=== PATIENT | male | born 1970 | race Caucasian/White ===

== ENCOUNTER 2019-09-13 19:11 | Emergency (ER) | payer BC, OTHER ==
[2019-09-13 19:28] VITALS: RESP 18
[2019-09-13] MEDS ORDERED: SODIUM CHLORIDE 0.9% 1,000 ML IV STA (20:00)
[2019-09-13] MEDS ORDERED: KETOROLAC 30 MG/ML 1 ML VIAL IVP STA (20:00)
[2019-09-13] MEDS ORDERED: ACETAMINOPHEN TAB 500 MG TAB PO STA (20:06)
--- NOTE | 2019-09-13 20:08 | ED ---
General Adult HPI - General Chief complaint: Abdominal Pain Stated complaint: Abdominal Pain Time Seen by Provider: 09/13/19 19:33 Source: patient, RN notes reviewed Mode of arrival: ambulatory Limitations: no limitations - History of Present Illness Initial comments: 49-year-old male with a past medical history of diverticulitis, inguinal hernia, cholecystectomy presents to the emergency department for a chief complaint of abdominal pain. Patient states he has had mild lower abdominal pain for the past 4 days. He states his bowel movements have been more loose as well. Patient has history of diverticulitis and feels this may be causing the sym ptoms. He did have some chest tightness earlier today that was concerning to him. This did not worsen with exertion and seem to worsen with the abdominal pain. He didn't have any other associated symptoms. He does not have a history of hyperlipidemia or hypertension.. Patient has felt febrile but has not had a thermometer at home to check his temperature. He has not had much of an appetite either. He denies cough congestion sore throat shortness of breath.Patient has no other complaints at this time including shortness of breath, chest pain, abdominal pain, nausea or vomiting, headache, or visual changes. - Related Data Home Medications Medication Instructions Recorded Confirmed DULoxetine HCL [Cymbalta] 60 mg PO HS 09/13/19 09/13/19 Divalproex ER [Depakote ER] 500 mg PO HS 09/13/19 09/13/19 Previous Rx's Medication Instructions Recorded Levofloxacin [Levaquin] 750 mg PO DAILY 9 Days #9 tab 09/13/19 metroNIDAZOLE [Flagyl] 500 mg PO TID 29 Days #9 tab 09/13/19 Allergies Allergy/AdvReac Type Severity Reaction Status Date / Time Penicillins Allergy Rash/Hives Verified 09/13/19 19:28 Sulfa (Sulfonamide AdvReac Nausea & Verified 09/13/19 19:28 Antibiotics) Vomiting & Diarrhea Review of Systems ROS Statement: Those systems with pertinent positive or pertinent negative responses have been documented in the HPI. ROS Other: All systems not noted in ROS Statement are negative. Past Medical History Additional Past Medical History / Comment(s): diverticulitis History of Any Multi-Drug Resistant Organisms: None Reported Past Surgical History: Cholecystectomy Additional Past Surgical History / Comment(s): double hernia repair, bilat hands carpool tunnel repair Past Psychological History: PTSD Smoking Status: Vaper Past Alcohol Use History: Rare Past Drug Use History: None Reported General Exam Limitations: no limitations General appearance: alert, in no apparent distress Head exam: Present: atraumatic, normocephalic, normal inspection Eye exam: Present: normal appearance, PERRL, EOMI. Absent: scleral icterus, conjunctival injection, periorbital swelling ENT exam: Present: normal exam, mucous membranes moist Neck exam: Present: normal inspection, full ROM. Absent: tenderness, meningismus, lymphadenopathy Respiratory exam: Present: normal lung sounds bilaterally. Absent: respiratory distress, wheezes, rales, rhonchi, stridor Cardiovascular Exam: Present: regular rate, normal rhythm, normal heart sounds. Absent: systolic murmur, diastolic murmur, rubs, gallop, clicks GI/Abdominal exam: Present: soft, tenderness (Tenderness noted to the left lower quadrant without rebound), normal bowel sounds. Absent: distended, guarding, rebound, rigid Back exam: Absent: CVA tenderness (R), CVA tenderness (L) Neurological exam: Present: alert Course Vital Signs 09/13/19 09/13/19 19:24 21:10 Temperature 100.2 F H 98.8 F Pulse Rate 95 82 Respiratory 18 18 Rate Blood Pressure 156/94 127/70 O2 Sat by Pulse 98 95 Oximetry EKG Findings - EKG Comments: EKG Findings:: Normal sinus rhythm, ventricular rate 80, DE interval 146, QTC 408 Medical Decision Making - Medical Decision Making Vitals are stable. Patient had low-grade fever on presentation to emergency room however is very well appearing. Does not appear toxic. CBC CMP is unremarkable. Urinalysis is negative. Troponin is negative. Lactic acid minimally elevated at 2.5 which is likely secondary to dehydration. Patient given fluids. CT abdomen and pelvis does show a focal diverticulitis in the mid sigmoid colon Without drainable fluid collection. Patient was started on antibiotics. I did discuss the risk of fluoroquinolone including tendon rupture. 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 He will follow up with primary care. He will return here for any worsening symptoms. - Lab Data Result diagrams: 09/13/19 20:18 09/13/19 20:18 Lab Results 09/13/19 09/13/19 09/13/19 Range/Units 20:18 20:18 20:18 WBC 10.1 (3.8-10.6) k/uL RBC 4.55 (4.30-5.90) m/uL Hgb 14.2 (13.0-17.5) gm/dL Hct 41.0 (39.0-53.0) % MCV 90.0 (80.0-100.0) fL MCH 31.2 (25.0-35.0) pg MCHC 34.7 (31.0-37.0) g/dL RDW 12.8 (11.5-15.5) % Plt Count 214 (150-450) k/uL Neutrophils % 72 % Lymphocytes % 20 % Monocytes % 5 % Eosinophils % 1 % Basophils % 0 % Neutrophils # 7.3 (1.3-7.7) k/uL Lymphocytes # 2.0 (1.0-4.8) k/uL Monocytes # 0.5 (0-1.0) k/uL Eosinophils # 0.1 (0-0.7) k/uL Basophils # 0.0 (0-0.2) k/uL Sodium 136 L (137-145) mmol/L Potassium 4.2 (3.5-5.1) mmol/L Chloride 100 (98-107) mmol/L Carbon Dioxide 26 (22-30) mmol/L Anion Gap 10 mmol/L BUN 15 (9-20) mg/dL Creatinine 0.99 (0.66-1.25) mg/dL Est GFR (CKD-EPI)AfAm >90 (>60 ml/min/1.73 sqM) Est GFR (CKD-EPI)NonAf 90 (>60 ml/min/1.73 sqM) Glucose 168 H (74-99) mg/dL Plasma Lactic Acid Wayne (0.7-2.0) mmol/L Calcium 9.4 (8.4-10.2) mg/dL Total Bilirubin 0.5 (0.2-1.3) mg/dL AST 28 (17-59) U/L ALT 39 (4-49) U/L Alkaline Phosphatase 42 (38-126) U/L Troponin I (0.000-0.034) ng/mL Total Protein 7.3 (6.3-8.2) g/dL Albumin 4.5 (3.5-5.0) g/dL Amylase 44 (30-110) U/L Lipase 112 (23-300) U/L Urine Color Yellow Urine Appearance Clear (Clear) Urine pH 6.0 (5.0-8.0) Ur Specific [place] 1.016 (1.001-1.035) Urine Protein Negative (Negative) Urine Glucose (UA) Negative (Negative) Urine Ketones Negative (Negative) Urine Blood Negative (Negative) Urine Nitrite Negative (Negative) Urine Bilirubin Negative (Negative) Urine Urobilinogen <2.0 (<2.0) mg/dL Ur Leukocyte Esterase Negative (Negative) 09/13/19 09/13/19 Range/Units 20:18 20:18 WBC (3.8-10.6) k/uL RBC (4.30-5.90) m/uL Hgb (13.0-17.5) gm/dL Hct (39.0-53.0) % MCV (80.0-100.0) fL MCH (25.0-35.0) pg MCHC (31.0-37.0) g/dL RDW (11.5-15.5) % Plt Count (150-450) k/uL Neutrophils % % Lymphocytes % % Monocytes % % Eosinophils % % Basophils % % Neutrophils # (1.3-7.7) k/uL Lymphocytes # (1.0-4.8) k/uL Monocytes # (0-1.0) k/uL Eosinophils # (0-0.7) k/uL Basophils # (0-0.2) k/uL Sodium (137-145) mmol/L Potassium (3.5-5.1) mmol/L Chloride (98-107) mmol/L Carbon Dioxide (22-30) mmol/L Anion Gap mmol/L BUN (9-20) mg/dL Creatinine (0.66-1.25) mg/dL Est GFR (CKD-EPI)AfAm (>60 ml/min/1.73 sqM) Est GFR (CKD-EPI)NonAf (>60 ml/min/1.73 sqM) Glucose (74-99) mg/dL Plasma Lactic Acid Wayne 2.5 H* (0.7-2.0) mmol/L Calcium (8.4-10.2) mg/dL Total Bilirubin (0.2-1.3) mg/dL AST (17-59) U/L ALT (4-49) U/L Alkaline Phosphatase (38-126) U/L Troponin I <0.012 (0.000-0.034) ng/mL Total Protein (6.3-8.2) g/dL Albumin (3.5-5.0) g/dL Amylase (30-110) U/L Lipase (23-300) U/L Urine Color Urine Appearance (Clear) Urine pH (5.0-8.0) Ur Specific [place] (1.001-1.035) Urine Protein (Negative) Urine Glucose (UA) (Negative) Urine Ketones (Negative) Urine Blood (Negative) Urine Nitrite (Negative) Urine Bilirubin (Negative) Urine Urobilinogen (<2.0) mg/dL Ur Leukocyte Esterase (Negative) Disposition Clinical Impression: Diverticulitis Disposition: HOME SELF-CARE Condition: Good Instructions (If sedation given, give patient instructions): Diverticulitis (ED), Diverticulitis Diet (ED) Additional Instructions: Please take antibiotic as directed. Monitor for worsening symptoms such as worsening pain or high fevers. If these occur return to the emergency room. Follow-up with primary care and GI in 1-2 days. Prescriptions: metroNIDAZOLE [Flagyl] 500 mg PO TID 29 Days #9 tab Levofloxacin [Levaquin] 750 mg PO DAILY 9 Days #9 tab Is patient prescribed a controlled substance at d/c from ED?: No Referrals: Zi King MD [Primary Care Provider] - 1-2 days Anna Drew MD [STAFF PHYSICIAN] - 1-2 days Time of Disposition: 21:39
[2019-09-13 20:28] LABS: Appearance,Urine Clear (Clear); Bilirubin,Urine Negative (Negative); Blood,Urine Negative (Negative); Color,Urine Yellow; Glucose,Urine (UA) Negative (Negative); Ketones,Urine Negative (Negative); Leukocyte Esterase,Urine Negative (Negative); Nitrite,Urine Negative (Negative); Protein,Urine Negative (Negative); Specific Gravity,Urine 1.016 (1.001-1.035); Urobilinogen,Urine <2.0 mg/dL (<2.0)
[2019-09-13 20:29] LABS: Basophils % (A) 0 %; Eosinophils # (A) 0.1 k/uL (0-0.7); Eosinophils % (A) 1 %; HGB 14.2 gm/dL (13.0-17.5); Lymphocytes % (A) 20 %; MCH 31.2 pg (25.0-35.0); MCHC 34.7 g/dL (31.0-37.0); Mean Platelet Volume 7.7; Monocytes # (A) 0.5 k/uL (0-1.0); Monocytes % (A) 5 %; Neutrophils # (A) 7.3 k/uL (1.3-7.7); Neutrophils % (A) 72 %; Platelet Count 214 k/uL (150-450); RBC 4.55 m/uL (4.30-5.90); RDW 12.8 % (11.5-15.5); WBC 10.1 k/uL (3.8-10.6)
[2019-09-13 20:49] LABS: ALT 39 U/L (4-49); AST 28 U/L (17-59); African American GFR (CKD) >90 (>60 ml/min/1.73 sqM); Albumin 4.5 g/dL (3.5-5.0); Alkaline Phosphatase 42 U/L (38-126); Amylase 44 U/L (30-110); Anion Gap 10 mmol/L; Blood Urea Nitrogen 15 mg/dL (9-20); Calcium 9.4 mg/dL (8.4-10.2); Carbon Dioxide 26 mmol/L (22-30); Chloride 100 mmol/L (98-107); Glucose 168 mg/dL (74-99); Non-African American GFR(CKD) 90 (>60 ml/min/1.73 sqM); Potassium 4.2 mmol/L (3.5-5.1); Sodium 136 mmol/L (137-145); Total Bilirubin 0.5 mg/dL (0.2-1.3); Total Protein 7.3 g/dL (6.3-8.2)
[2019-09-13 21:10] VITALS: BP 127/70; PULSE 82; TEMP 98.8
--- NOTE | 2019-09-13 21:11 | CT ---
EXAMINATION TYPE: CT abdomen pelvis w con DATE OF EXAM: 09/13/2019 COMPARISON: None HISTORY: LLQ pain CT DLP: 2223.1 mGycm Automated exposure control for dose reduction was used. CONTRAST: Performed with IV Contrast, patient injected with 100 mL of Isovue 300. Images obtained from the diaphragm to the floor the pelvis with IV contrast. Lung bases are clear. There is no pleural effusion. Heart appears normal. There is diffuse fatty infiltration of the liver. Spleen is intact. Stomach appears intact. There is no pancreatic mass. The bile ducts are not dilated. Gallbladder appears absent. There is no adrenal mass. Kidneys show satisfactory contrast opacification. There is no hydronephrosi s. There is 2 cm cortical cyst lateral right kidney. The ureters are not dilated. Delayed images show normal renal calyceal opacification. There is no retroperitoneal adenopathy. Ureters are not dilated . Bladder distends smoothly. There is no inguinal hernia. There is no free fluid in the pelvis. The a ppendix appears normal. There is fat stranding and wall thickening involving the MID sigmoid colon. There are multiple sigmoi d diverticula. Lumbar vertebra have normal alignment. Disc spaces are fairly normal. Posterior elements are intact. Sacroiliac joints appear intact. There are clips in the lower anterior abdomen apparently from hernia surgery. There is no evidence of a bowel obstruction. There is no ascites or free air. IMPRESSION: There is focal diverticulitis in the mid proximal sigmoid colon. No drainable fluid collection. Normal appendix. Fatty infiltration of the liver.
[2019-09-13] MEDS ORDERED: LEVOFLOXACIN 750 MG TAB PO STA (21:41)
[2019-09-13] MEDS ORDERED: metroNIDAZOLE 500 MG TAB PO STA (21:41)
== END 2019-09-13 21:56 | disposition home or self-care (01) ==
LOC: EC 19:11
DX: K57.32 Diverticulitis of large intestine without perforation or abscess without bleeding (principal); F17.290 Nicotine dependence, other tobacco product, uncomplicated; Z79.899 Other long term (current) drug therapy; Z88.0 Allergy status to penicillin; Z88.2 Allergy status to sulfonamides; Z90.49 Acquired absence of other specified parts of digestive tract
CPT/HCPCS: 36415; 93005; 80053; 82150; 83605; 83690; 84484; 85025; 81003; 74177; 99284; 96374; 96361 ×2; J1885; Q9967

== ENCOUNTER 2019-11-22 14:42 | Emergency (ER) | payer BC, OTHER ==
[2019-11-22 14:51] VITALS: BP 164/96; PULSE 89; RESP 18; TEMP 99
--- NOTE | 2019-11-22 14:54 | ED ---
Wound/Laceration HPI - General Source: patient Mode of arrival: ambulatory Limitations: no limitations - History of Present Illness -: hour(s) (1) <Puneet Bellamy - Last Filed: 11/22/19 15:00> <Maggy Figueroa - Last Filed: 11/22/19 16:04> - General Chief Complaint: Wound/Laceration Stated Complaint: L Hand Lac Time Seen by Provider: 11/22/19 14:54 - History of Present Illness Initial Comments: Patient is a 49-year-old male presenting to emergency Department with a chief complaint of a laceration. Patient states he was using a sharp knife when it slipped and lacerated the dorsal aspect of his left thumb. Patient states he has full range of motion. Is not aware of his tetanus status. Denies taking medication to alleviate the pain. States the pain is about a 3 and a sharp in nature. Reports some initial bleeding which has since resolved. (Puneet Bellamy) - Related Data Home Medications Medication Instructions Recorded Confirmed DULoxetine HCL [Cymbalta] 60 mg PO HS 09/13/19 09/13/19 Divalproex ER [Depakote ER] 500 mg PO HS 09/13/19 09/13/19 Previous Rx's Medication Instructions Recorded Levofloxacin [Levaquin] 750 mg PO DAILY 9 Days #9 tab 09/13/19 metroNIDAZOLE [Flagyl] 500 mg PO TID 29 Days #9 tab 09/13/19 Allergies Allergy/AdvReac Type Severity Reaction Status Date / Time Penicillins Allergy Rash/Hives Verified 11/22/19 14:51 Sulfa (Sulfonamide AdvReac Nausea & Verified 11/22/19 14:51 Antibiotics) Vomiting & Diarrhea Review of Systems ROS Other: All systems not noted in ROS Statement are negative. <Puneet Bellamy - Last Filed: 11/22/19 15:00> ROS Other: All systems not noted in ROS Statement are negative. <Maggy Figueroa - Last Filed: 11/22/19 16:04> ROS Statement: Those systems with pertinent positive or pertinent negative responses have been documented in the HPI. Past Medical History Additional Past Medical History / Comment(s): diverticulitis History of Any Multi-Drug Resistant Organisms: None Reported Past Surgical History: Cholecystectomy Additional Past Surgical History / Comment(s): double hernia repair, bilat hands carpool tunnel repair Past Psychological History: PTSD Smoking Status: Vaper Past Alcohol Use History: Rare Past Drug Use History: None Reported <Puneet Bellamy Last Filed: 11/22/19 15:00> General Exam Limitations: no limitations General appearance: alert, in no apparent distress, obese Head exam: Present: atraumatic, normocephalic, normal inspection Eye exam: Present: normal appearance, PERRL, EOMI Pupils: Present: normal accommodation ENT exam: Present: normal exam, normal oropharynx, mucous membranes moist, TM's normal bilaterally, normal external ear exam Neck exam: Present: normal inspection, full ROM. Absent: tenderness Respiratory exam: Present: normal lung sounds bilaterally. Absent: respiratory distress, wheezes, rales Cardiovascular Exam: Present: regular rate, normal rhythm, normal heart sounds Extremities exam: Present: normal inspection, full ROM, normal capillary refill. Absent: tenderness Back exam: Present: normal inspection, full ROM. Absent: tenderness, CVA ten derness (R), CVA tenderness (L) Neurological exam: Present: alert, oriented X3, normal gait Psychiatric exam: Present: normal affect, normal mood Skin exam: Present: warm, dry, intact, normal color <Puneet Bellamy Last Filed: 11/22/19 15:00> Course Vital Signs 11/22/19 14:48 Temperature 99.0 F Pulse Rate 89 Respiratory 18 Rate Blood Pressure 164/96 O2 Sat by Pulse 99 Oximetry Procedures - Laceration Laceration #1 Consent Obtained: verbal consent Indication: laceration Site: hand Size (cm): 5 Description: linear, clean Depth: simple, single layer Sedation/Analgesia: none Anesthetic Used: lidocaine 1% Anesthesia Technique: local infiltration Amount (mls): 5 Pre-repair: irrigated extensively, deep structures intact Type of Sutures: nylon Size of Sutures: 4-0 Number of Sutures: 5 Technique: simple, interrupted Complications: pain Patient Tolerated Procedure: well, no complications <Puneet Bellamy - Last Filed: 11/22/19 15:00> Medical Decision Making <Puneet Bellamy Last Filed: 11/22/19 15:00> <Maggy Figueroa - Last Filed: 11/22/19 16:04> - Medical Decision Making Patient is a 49-year-old male presenting to emergency Department with a chief complaint of a laceration. Laceration is approximate 5 cm in length. He has f ull range of motion. No injury to the tendons. Laceration was repaired with 5 suture. Patient is neurovascularly intact in his thumb. Return parameters were thoroughly discussed patient is an attending agreeable. Advised to return in 10 days. Case discussed with physician (Puneet Bellamy) I was available for consultation in the emergency department. The history and physical exam were done by the midlevel provider. I was consulted for this patients care. I reviewed the case with the midlevel provider and based on their presentation of the patient, I agree with the assessment, medical decision making and plan of care as documented. Chart was dictated using [employer] dictation software. Attempts were made to correct any dictation errors however some typographical errors may persist. (Maggy Figueroa) Disposition Is patient prescribed a controlled substance at d/c from ED?: No Time of Disposition: 15:06 <Puneet Bellamy - Last Filed: 11/22/19 15:00> <Maggy Figueroa - Last Filed: 11/22/19 16:04> Clinical Impression: Laceration Disposition: HOME SELF-CARE Condition: Stable Instructions (If sedation given, give patient instructions): Care For Your St itches (DC), Laceration (DC) Additional Instructions: Please return to the emergency room in 8-10 days to have sutures removed. Please watch for any signs of infection which may include increased pain, swelling, redness, fever or chills. Please return to emergency room for any signs of infection do occur. Please use clean soap and water over the area to prevent scabbing over your stitches. Please leave wound covered for the first 24-48 hours and then leave wound open to air. Please return to the emergency room for any other concerns. Referrals: Zi King MD [Primary Care Provider] - 1-2 days
[2019-11-22] MEDS ORDERED: LIDOCAINE 1% INJ 10MG/ML (20 ML MDV) SQ ONE (15:00)
[2019-11-22] MEDS ORDERED: DIPH,PERTUS(ACELL)TETVAC-LF 0.5 ML VIAL IM ONE (15:00)
== END 2019-11-22 15:53 | disposition home or self-care (01) ==
LOC: EC 14:42
DX: S61.012A Laceration without foreign body of left thumb without damage to nail, initial encounter (principal); F17.290 Nicotine dependence, other tobacco product, uncomplicated; Z79.899 Other long term (current) drug therapy; Z88.0 Allergy status to penicillin; Z88.2 Allergy status to sulfonamides; Z23 Encounter for immunization; W26.0XXA Contact with knife, initial encounter
CPT/HCPCS: 90715; 99282; 12002; 90471; J2001

== ENCOUNTER 2019-12-05 06:36 | Emergency (ER) | payer BC, OTHER ==
[2019-12-05 06:43] VITALS: BP 161/99; PULSE 82; RESP 20; TEMP 98.2
--- NOTE | 2019-12-05 06:58 | ED ---
General Adult HPI - General Chief complaint: Wound/Laceration Stated complaint: Left hand lac Time Seen by Provider: 12/05/19 06:46 Source: patient, RN notes reviewed Mode of arrival: ambulatory Limitations: no limitations - History of Present Illness Initial comments: 49-year-old male presents to the emergency room for a chief complaint of wound opening. Patient reports that he had a laceration repaired on the dorsum of his left thumb about 2 weeks ago. Sutures were removed a few days ago. 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 Patient reports he tried to suture it himself but was unable to do so with one hand. Patient has some minimal decreased sensation over laceration site. Otherwise sensation intact in the left hand. Full range of motion. Patient has no other complaints at this time including shortness of breath, chest pain, abdominal pain, nausea or vomiting, headache, or visual changes. - Related Data Home Medications Medication Instructions Recorded Confirmed DULoxetine HCL [Cymbalta] 60 mg PO HS 09/13/19 09/13/19 Divalproex ER [Depakote ER] 500 mg PO HS 09/13/19 09/13/19 Previous Rx's Medication Instructions Recorded Levofloxacin [Levaquin] 750 mg PO DAILY 9 Days #9 tab 09/13/19 metroNIDAZOLE [Flagyl] 500 mg PO TID 29 Days #9 tab 09/13/19 Cephalexin [Keflex] 500 mg PO Q6HR 5 Days #20 cap 12/05/19 Allergies Allergy/AdvReac Type Severity Reaction Status Date / Time Penicillins Allergy Rash/Hives Verified 12/05/19 06:43 Sulfa (Sulfonamide AdvReac Nausea & Verified 12/05/19 06:43 Antibiotics) Vomiting & Diarrhea Review of Systems ROS Statement: Those systems with pertinent positive or pertinent negative responses have been documented in the HPI. ROS Other: All systems not noted in ROS Statement are negative. Past Medical History Additional Past Medical History / Comment(s): diverticulitis History of Any Multi-Drug Resistant Organisms: None Reported Past Surgical History: Cholecystectomy Additional Past Surgical History / Comment(s): double hernia repair, bilat hands carpool tunnel repair Past Psychological History: PTSD Smoking Status: Vaper Past Alcohol Use History: Rare Past Drug Use History: None Reported General Exam Limitations: no limitations General appearance: alert, in no apparent distress Head exam: Present: atraumatic, normocephalic, normal inspection Eye exam: Present: normal appearance, PERRL, EOMI. Absent: scleral icterus, conjunctival injection, periorbital swelling ENT exam: Present: normal exam, mucous membranes moist Neck exam: Present: normal inspection. Absent: tenderness, meningismus, lymphadenopathy Respiratory exam: Present: normal lung sounds bilaterally. Absent: respiratory distress, wheezes, rales, rhonchi, stridor Cardiovascular Exam: Present: regular rate, normal rhythm, normal heart sounds. Absent: systolic murmur, diastolic murmur, rubs, gallop, clicks Extremities exam: Present: other (Patient has a 2.5 cm area of shallow dehiscence noted to the left dorsal thumb. He has full range of motion in the thumb. Sensation intact aside from some mild decreased sensation around laceration site. Capillary refill less than 2 seconds in the left thumb. No evidence of infection ) Course Vital Signs 12/05/19 06:38 Temperature 98.2 F Pulse Rate 82 Respiratory 20 Rate Blood Pressure 161/99 O2 Sat by Pulse 98 Oximetry Medical Decision Making - Medical Decision Making Wound has evidence of granulation tissue surrounding it however no significant erythema, increased warmth, or purulent drainage. No streaking redness. No evidence of infection. Neurovascular status intact aside from slight decreased sensation around laceration site. As wound was closed about 2 weeks ago sutures were not reapplied given high risk of infection at this point. Steri-Strips were applied to the wound. Patient was given extra to take home. Patient reported he did not really receive a tetanus immunization however upon further investigation patient did in fact receive a tetanus immunization on his last visit. At this time patient will be discharged home with Keflex to prevent infection as wound is open. He will return here for any worsening symptoms. Disposition Clinical Impression: Laceration, Wound dehiscence Disposition: HOME SELF-CARE Condition: Good Instructions (If sedation given, give patient instructions): Wound Dehiscence (ED) Additional Instructions: Please take antibiotic as directed. Your wound is expected to heal from the inside out through a process called secondary intention healing. Monitor for signs of infection such as spreading or streaking redness, drainage, or fever and return if these occur. Follow-up with primary care in 1-2 days for a recheck. Prescriptions: Cephalexin [Keflex] 500 mg PO Q6HR 5 Days #20 cap Is patient prescribed a controlled substance at d/c from ED?: No Referrals: Zi King MD [Primary Care Provider] - 1-2 days Time of Disposition: 06:56
[2019-12-05] MEDS ORDERED: DIPH,PERTUS(ACELL)TETVAC-LF 0.5 ML VIAL IM ONE (07:02)
== END 2019-12-05 07:10 | disposition home or self-care (01) ==
LOC: EC 06:36
DX: T81.30XA Disruption of wound, unspecified, initial encounter (principal); F43.10 Post-traumatic stress disorder, unspecified; F17.290 Nicotine dependence, other tobacco product, uncomplicated; Z79.899 Other long term (current) drug therapy; Z88.0 Allergy status to penicillin; Z88.2 Allergy status to sulfonamides
CPT/HCPCS: 99282

== ENCOUNTER → 2021-04-05 | Outpatient (CLI) | payer OTHER ==
--- NOTE | 2021-04-05 17:36 | MR ---
EXAMINATION TYPE: MR knee RT wo con DATE OF EXAM: 04/05/2021 COMPARISON: None. HISTORY: Pain in right knee, inner ear pain for years per patient. TECHNIQUE: Multiplanar, multisequence imaging of the right knee is performed without IV contrast. FINDINGS: LATERAL MENISCUS: Anterior and posterior horns are intact without tear. MEDIAL MENISCUS: Medial extrusion medial meniscus on coronal images. Horizontal increased signal ante rior horn extends to central body and posterior horn, there is irregularity in the central body . CRUCIATE LIGAMENTS: The anterior and posterior cruciate ligaments are intact and unremarkable. COLLATERAL LIGAMENTS: The medial collateral ligament and lateral collateral ligament complex are inta ct and unremarkable. EXTENSOR MECHANISM: Visualized quadriceps and patellar tendons are intact. EFFUSION: Small suprapatellar joint effusion. POPLITEAL CYST: No popliteal/hadley cyst. TRICOMPARTMENT SPACES: Mild tricompartment degenerative joint space loss. Mild tricompartment spurrin g. CARTILAGE: Tricompartmental articular cartilage preserved. BONE MARROW SIGNAL: No focal abnormal marrow signal is appreciated. OTHER: No additional significant abnormality is appreciated. IMPRESSION: 1. Tearing through the medial meniscus involving anterior and posterior horns and the central body. 2. Mild tricompartment degenerative changes. 3. Small suprapatellar joint effusion.
== END | disposition home or self-care (01) ==
LOC: RADMRIMAIN 11:05
PROVIDERS: ATTEND Orthopaedic Surgery
DX: M17.11 Unilateral primary osteoarthritis, right knee (principal); M23.311 Other meniscus derangements, anterior horn of medial meniscus, right knee; M25.461 Effusion, right knee; M23.321 Other meniscus derangements, posterior horn of medial meniscus, right knee

== ENCOUNTER → 2021-04-17 | Outpatient (CLI) | payer OTHER ==
[2021-04-17 14:09] LABS: Basophils # (A) 0.03 X 10*3/uL (0.00-0.10); Basophils % (A) 0.6 %; Eosinophils # (A) 0.07 X 10*3/uL (0.04-0.35); Eosinophils % (A) 1.3 %; HCT 40.9 % (39.6-50.0); HGB 14.2 g/dL (13.0-17.0); Immature Grans, Automated 0.2 %; Lymphocytes # (A) 1.86 X 10*3/uL (0.90-5.00); Lymphocytes % (A) 35.2 %; MCH 30.8 pg (27.0-32.0); MCHC 34.7 g/dL (32.0-37.0); MCV 88.7 fL (80.0-97.0); Mean Platelet Volume 10.7 fL (9.5-12.2); Monocytes # (A) 0.55 X 10*3/uL (0.20-1.00); Monocytes % (A) 10.4 %; NRBC Per 100 WBC 0 /100 WBCS (0.0-0.0); Neutrophils # (A) 2.77 X 10*3/uL (1.80-7.70); Neutrophils % (A) 52.3 %; Platelet Count 202 X 10*3/uL (140-440); RBC 4.61 X 10*6/uL (4.40-5.60); RDW 12.7 % (11.5-14.5); WBC 5.29 X 10*3/uL (4.50-10.00)
[2021-04-17 14:33] LABS: Anion Gap 13.5 mmol/L (10.00-18.00); Carbon Dioxide 21.5 mmol/L (20.0-27.5); Potassium 4.3 mmol/L (3.5-5.5)
== END | disposition home or self-care (01) ==
LOC: LABPAT 08:39
PROVIDERS: ATTEND Orthopaedic Surgery
DX: Z01.812 Encounter for preprocedural laboratory examination (principal); M23.91 Unspecified internal derangement of right knee
CPT/HCPCS: 36415; 80051; 85025; 93005

== ENCOUNTER 2021-07-27 13:15 | Emergency (ER) | payer OTHER, BC ==
[2021-07-27 13:30] VITALS: BP 172/77; PULSE 70; RESP 16; TEMP 97.8
[2021-07-27 14:39] LABS: Basophils # (A) 0.1 k/uL (0-0.2); Basophils % (A) 1 %; Eosinophils # (A) 0.1 k/uL (0-0.7); Eosinophils % (A) 1 %; HCT 43.2 % (39.0-53.0); HGB 14.3 gm/dL (13.0-17.5); Lymphocytes # (A) 1.8 k/uL (1.0-4.8); Lymphocytes % (A) 25 %; MCH 29.8 pg (25.0-35.0); MCHC 33.1 g/dL (31.0-37.0); Mean Platelet Volume 7.8; Monocytes # (A) 0.5 k/uL (0-1.0); Monocytes % (A) 7 %; Neutrophils # (A) 4.5 k/uL (1.3-7.7); Neutrophils % (A) 63 %; Platelet Count 193 k/uL (150-450); RDW 12.7 % (11.5-15.5); WBC 7.2 k/uL (3.8-10.6)
[2021-07-27 14:53] LABS: ALT 37 U/L (4-49); AST 27 U/L (17-59); African American GFR (CKD) >90 (>60 ml/min/1.73 sqM); Albumin 4.5 g/dL (3.5-5.0); Alkaline Phosphatase 42 U/L (38-126); Anion Gap 8 mmol/L; Blood Urea Nitrogen 15 mg/dL (9-20); C Reactive Protein <0.5 mg/dL (<1.0); Carbon Dioxide 23 mmol/L (22-30); Chloride 109 mmol/L (98-107); Glucose 97 mg/dL (74-99); Non-African American GFR(CKD) 82 (>60 ml/min/1.73 sqM); Potassium 4.3 mmol/L (3.5-5.1); Sodium 140 mmol/L (137-145); Total Bilirubin 0.4 mg/dL (0.2-1.3); Total Protein 7.2 g/dL (6.3-8.2); Uric Acid 7.7 mg/dL (3.5-8.5)
--- NOTE | 2021-07-27 15:05 | ED ---
Extremity Problem HPI - General Chief complaint: Extremity Problem,Nontraumatic Stated complaint: rt sided post op knee pain Time Seen by Provider: 07/27/21 14:02 Source: patient Mode of arrival: ambulatory Limitations: no limitations - History of Present Illness Initial comments: Patient is a 51-year-old male presenting with chief complaint of right knee pain. Pain has been ongoing for the last few days, pain feels localized to the knee, it does radiate above and below the level of the knee. The knee feels swollen, range of motion and ambulation are painful. He has been taking Motrin at home without pain relief. Patient had a meniscus repair in April 2021. He denies any injury or trauma. He denies any numbness, tingling, weakness, redness, fever, chills, nausea, vomiting, red streaking up or down the leg, chest pain, shortness of breath, abdominal pain. - Related Data Home Medications Medication Instructions Recorded Confirmed DULoxetine HCL [Cymbalta] 60 mg PO HS 09/13/19 05/06/21 Divalproex ER [Depakote ER] 500 mg PO HS 09/13/19 05/06/21 Atorvastatin [Lipitor] 40 mg PO HS 05/03/21 05/06/21 Ibuprofen 800 mg PO HS PRN 05/03/21 05/06/21 Levothyroxine Sodium [Synthroid] 25 mcg PO DAILY 05/03/21 05/06/21 Previous Rx's Medication Instructions Recorded HYDROcodone/APAP 5-325MG [Sharon 1 tab PO Q6HR PRN #12 tab 05/06/21 5-325] HYDROcodone/APAP 5-325MG [[place] 1 tab PO Q6HR PRN 3 Days #12 tab 07/27/21 5-325] Allergies Allergy/AdvReac Type Severity Reaction Status Date / Time Penicillins Allergy Rash/Hives Verified 07/27/21 13:30 Sulfa (Sulfonamide AdvReac Nausea & Verified 07/27/21 13:30 Antibiotics) Vomiting & Diarrhea Review of Systems ROS Statement: Those systems with pertinent positive or pertinent negative responses have been documented in the HPI. ROS Other: All systems not noted in ROS Statement are negative. Past Medical History Additional Past Medical History / Comment(s): diverticulitis History of Any Multi-Drug Resistant Organisms: None Reported Past Surgical History: Cholecystectomy Additional Past Surgical History / Comment(s): double hernia repair, bilat hands carpool tunnel repair, knee surgery in april 2021 Past Psychological History: PTSD Smoking Status: Vaper Past Alcohol Use History: None Reported Past Drug Use History: None Reported General Exam Limitations: no limitations General appearance: alert, in no apparent distress Head exam: Present: atraumatic, normocephalic, normal inspection Eye exam: Present: normal appearance, EOMI. Absent: scleral icterus Neck exam: Present: normal inspection Respiratory exam: Present: normal lung sounds bilaterally. Absent: respiratory distress, wheezes, rales, rhonchi, stridor Cardiovascular Exam: Present: regular rate, normal rhythm, normal heart sounds. Absent: systolic murmur, diastolic murmur, rubs, gallop, clicks Left Knee exam: Present: full ROM (pain with ROM), tenderness, swelling. Absent: erythema Lower Leg exam: Present: normal inspection, tenderness Ankle exam: Present: normal inspection, full ROM. Absent: tenderness, swelling Foot/Toe exam: Present: normal inspection, tenderness. Absent: swelling Neurovascular tendon exam: Present: no vascular compromise. Absent: motor deficit, sensory deficit, extremity cold to touch Neurological exam: Present: alert, oriented X3, CN II-XII intact Psychiatric exam: Present: normal affect, normal mood Skin exam: Present: warm, dry, intact, normal color. Absent: rash Course Vital Signs 07/27/21 13:26 Temperature 97.8 F Pulse Rate 70 Respiratory 16 Rate Blood Pressure 172/77 O2 Sat by Pulse 98 Oximetry Medical Decision Making - Medical Decision Making Patient is a 51-year-old male presenting with chief complaint of right knee pain and swelling. This has been ongoing for the last few days, and radiates above and below the level of the knee. On examination patient has full range of motion however he admits to pain. Pain is Mainly across the front of the knee and superior region. Full sensation, pedal pulses palpated. Lab work is grossly negative, negative CRP and uric acid. X-ray is negative. Venous Doppler ultrasound shows no sign of DVT. Educated patient on these findings. He appears stable for discharge with outpatient follow-up at this time. Follow- up with PCP and orthopedic surgeon this week. His provided three-day prescript ion for Sharon for pain control. Utilize rest, ice, elevation, knee immobilizer. Report back to ER with any new or worsening symptoms. I discussed return parameters alarm symptoms. Answered all questions. Patient conveyed verbal understanding and agreed to the plan. I discussed this case with my attending Dr. Mukherjee. - Lab Data Result diagrams: 07/27/21 14:32 07/27/21 14:32 Lab Results 07/27/21 07/27/21 Range/Units 14:32 14:32 WBC 7.2 (3.8-10.6) k/uL RBC 4.80 (4.30-5.90) m/uL Hgb 14.3 (13.0-17.5) gm/dL Hct 43.2 (39.0-53.0) % MCV 90.0 (80.0-100.0) fL MCH 29.8 (25.0-35.0) pg MCHC 33.1 (31.0-37.0) g/dL RDW 12.7 (11.5-15.5) % Plt Count 193 (150-450) k/uL MPV 7.8 Neutrophils % 63 % Lymphocytes % 25 % Monocytes % 7 % Eosinophils % 1 % Basophils % 1 % Neutrophils # 4.5 (1.3-7.7) k/uL Lymphocytes # 1.8 (1.0-4.8) k/uL Monocytes # 0.5 (0-1.0) k/uL Eosinophils # 0.1 (0-0.7) k/uL Basophils # 0.1 (0-0.2) k/uL ESR 7 (0-15) mm/hr Sodium 140 (137-145) mmol/L Potassium 4.3 (3.5-5.1) mmol/L Chloride 109 H (98-107) mmol/L Carbon Dioxide 23 (22-30) mmol/L Anion Gap 8 mmol/L BUN 15 (9-20) mg/dL Creatinine 1.06 (0.66-1.25) mg/dL Est GFR (CKD-EPI)AfAm >90 (>60 ml/min/1.73 sqM) Est GFR (CKD-EPI)NonAf 82 (>60 ml/min/1.73 sqM) Glucose 97 (74-99) mg/dL Uric Acid 7.7 (3.5-8.5) mg/dL Calcium 9.0 (8.4-10.2) mg/dL Total Bilirubin 0.4 (0.2-1.3) mg/dL AST 27 (17-59) U/L ALT 37 (4-49) U/L Alkaline Phosphatase 42 (38-126) U/L C-Reactive Protein <0.5 (<1.0) mg/dL Total Protein 7.2 (6.3-8.2) g/dL Albumin 4.5 (3.5-5.0) g/dL Disposition Clinical Impression: Knee pain Disposition: HOME SELF-CARE Condition: Good Instructions (If sedation given, give patient instructions): Swollen Knee Joint (ED), Knee Pain (ED), Arthralgia (ED) Additional Instructions: Follow up with orthopedics and PCP as soon as possible. Report back to ER with any worsening symptoms. Take medication as prescribed. Utilize icing, elevation, and knee immobilizer until cleared by orthopedics. Prescriptions: HYDROcodone/APAP 5-325MG [Sharon 5-325] 1 tab PO Q6HR PRN 3 Days #12 tab PRN Reason: Pain Is patient prescribed a controlled substance at d/c from ED?: No Referrals: [facility],Clinic [Primary Care Provider] - 1-2 days Time of Disposition: 17:21
--- NOTE | 2021-07-27 15:28 | XR ---
EXAMINATION TYPE: XR knee complete RT DATE OF EXAM: 07/27/2021 COMPARISON: NONE HISTORY: Pain and swelling TECHNIQUE: 3 views FINDINGS: There is some spurring of the medial femoral and tibial condyles. There is slight narrowing of the medial joint space. No fracture nor dislocation. No sign of joint effusion. Patella is intact . IMPRESSION: There is some mild osteoarthritis in the medial joint space. No fracture seen.
[2021-07-27 15:54] LABS: Erythrocyte Sedimentation Rate 7 mm/hr (0-15)
--- NOTE | 2021-07-27 16:22 | US ---
EXAMINATION TYPE: US venous doppler duplex LE RT DATE OF EXAM: 07/27/2021 3:48 PM COMPARISON: NONE CLINICAL HISTORY: pain swelling. right knee swelling and pain, h/o endoscopic knee in April, no h/o dvt SIDE PERFORMED: Right TECHNIQUE: The lower extremity deep venous system is examined utilizing real time linear array sonog gonzález with graded compression, doppler sonography and color-flow sonography. VESSELS IMAGED: Common Femoral Vein Deep Femoral Vein Greater Saphenous Vein * Femoral Vein Popliteal Vein Small Saphenous Vein * Proximal Calf Veins (* superficial vessels) Right Leg: Negative for DVT IMPRESSION: No sign of deep vein thrombosis in the right leg.
[2021-07-27] MEDS ORDERED: KETOROLAC 15 MG/ML 1 ML VIAL IM STA (16:59)
== END 2021-07-27 17:30 | disposition home or self-care (01) ==
LOC: EC 13:15
DX: M25.561 Pain in right knee (principal); F17.209 Nicotine dependence, unspecified, with unspecified nicotine-induced disorders; Z88.0 Allergy status to penicillin; Z88.2 Allergy status to sulfonamides
CPT/HCPCS: 99284; 96372; 36415; 80053; 85652; 84550; 85025; 86140; 73562; 93971; J1885

== ENCOUNTER → 2021-08-21 | Outpatient (CLI) | payer OTHER ==
--- NOTE | 2021-08-22 04:27 | MR ---
EXAMINATION TYPE: MR knee RT wo con DATE OF EXAM: 08/21/2021 COMPARISON: 04/05/2021 HISTORY: Right knee pain, painful kneecap, and swelling for 2 years. Multiplanar multiecho imaging of the right knee with no contrast. There is narrowing of the medial joint space. The collateral ligaments are intact. There is minimal e erci on both sides of the medial joint space. The anterior and posterior cruciate ligaments are intac t. There is some mild truncation of the posterior horn of the medial meniscus. There is some medial d isplacement of the medial meniscus with increased signal. The lateral meniscus appears intact. There is horizontal tears in the anterior and posterior horn of the medial meniscus. There is a mild to mod erate knee joint effusion. Patella is intact. No fracture seen. IMPRESSION: Knee joint effusion. Horizontal tears and mild deformity of the medial meniscus. Osteoarthritic media l joint space narrowing. Mild edema on the medial femoral and tibial condyles. No evidence of ligamen tous tear. No fracture seen. Edema and the medial femoral and tibial condyles increased compared to old exam. Joint effusion sligh tly increased. Osteoarthritic narrowing in the medial joint space unchanged. Medial meniscus unchange d.
== END | disposition home or self-care (01) ==
LOC: RADMRIMAIN 19:43
PROVIDERS: ATTEND Orthopaedic Surgery
DX: M25.861 Other specified joint disorders, right knee (principal); S83.241A Other tear of medial meniscus, current injury, right knee, initial encounter; M25.641 Stiffness of right hand, not elsewhere classified; M21.961 Unspecified acquired deformity of right lower leg; M17.11 Unilateral primary osteoarthritis, right knee; M25.461 Effusion, right knee; X58.XXXA Exposure to other specified factors, initial encounter

== ENCOUNTER → 2021-09-23 | Outpatient (CLI) | payer OTHER ==
[2021-09-23 14:59] LABS: Basophils # (A) 0.02 X 10*3/uL (0.00-0.10); Basophils % (A) 0.3 %; Eosinophils # (A) 0.07 X 10*3/uL (0.04-0.35); Eosinophils % (A) 1.2 %; HGB 14.3 g/dL (13.0-17.0); Immature Grans, Automated 0.3 %; Lymphocytes # (A) 1.87 X 10*3/uL (0.90-5.00); Lymphocytes % (A) 31.1 %; MCH 29.6 pg (27.0-32.0); MCHC 33.3 g/dL (32.0-37.0); Monocytes # (A) 0.46 X 10*3/uL (0.20-1.00); Monocytes % (A) 7.6 %; NRBC Per 100 WBC 0 /100 WBCS (0.0-0.0); Neutrophils # (A) 3.58 X 10*3/uL (1.80-7.70); Neutrophils % (A) 59.5 %; Platelet Count 211 X 10*3/uL (140-440); RBC 4.83 X 10*6/uL (4.40-5.60); RDW 12.8 % (11.5-14.5); WBC 6.02 X 10*3/uL (4.50-10.00)
[2021-09-23 15:20] LABS: Anion Gap 12.5 mmol/L (10.00-18.00); Carbon Dioxide 24.5 mmol/L (20.0-27.5); Potassium 4.4 mmol/L (3.5-5.5)
== END | disposition home or self-care (01) ==
LOC: LABPAT 09:38
PROVIDERS: ATTEND Orthopaedic Surgery
DX: Z01.812 Encounter for preprocedural laboratory examination (principal); M23.91 Unspecified internal derangement of right knee
CPT/HCPCS: 36415; 80051; 85025

== ENCOUNTER 2021-10-03 09:18 | Day surgery (SDC) | payer OTHER ==
[2021-09-30 12:54] VITALS: BMI 38.4
--- NOTE | 2021-10-02 23:53 | HP ---
HISTORY AND PHYSICAL DATE OF SURGERY: 10/03/2021 HISTORY OF PRESENT ILLNESS: Leonard Hines is a 51-year-old patient seen with progressive right knee pain. We discussed options for treatment and he elected to proceed with right knee arthroscopy. Consent was obtained. PAST MEDICAL HISTORY: Hypothyroidism. PAST SURGICAL HISTORY: Herniorrhaphy, cholecystectomy, carpal tunnel release. DAILY MEDICATION: Lipitor. ALLERGIES: Penicillin and sulfa. SOCIAL HISTORY: HE denies tobacco use. PHYSICAL EVALUATION OF THE RIGHT KNEE: His range of motion is 0 to 130. Mild effusion. Tenderness medial joint line. Positive medial Karol's. Ligaments stable. Hip rotation without pain. Distal neurovascular exam intact. RADIOGRAPHS: Right knee radiographs revealed mild osteoarthritic changes. MRI of right knee revealed medial meniscal tear, osteoarthritis and effusion. IMPRESSION: 1. Internal derangement of right knee with medial meniscal tear. 2. Hyperlipidemia. PLAN: Right knee arthroscopy with partial medial meniscectomy and debridement. MMODL / IJN: [id number] /
[~2021-10-03 09:18] MED LIST: DEXAMETHASONE SOD PHOSPHATE 4 MG/ML 1 ML VIAL IV ONE; LACTATED RINGERS 1,000 ML IV SCH; LIDOCAINE 1% (10MG/ML) FOR IV START INTRADERMA PRN; ONDANSETRON 4 MG/2 ML VIAL IVP ONE
[2021-10-03] MEDS ORDERED: KETOROLAC 15 MG/ML 1 ML VIAL ONE (11:09)
[2021-10-03] MEDS ORDERED: PROPOFOL 10 MG/ML 20 ML VIAL IV ONE (11:09)
[2021-10-03] MEDS ORDERED: MIDAZOLAM 2 MG/2 ML VIAL ONE (11:09)
[2021-10-03] MEDS ORDERED: fentaNYL (PF) 50 MCG/ML 2 ML AMP ONE (11:09)
[2021-10-03] MEDS ORDERED: LIDOCAINE 2% INJ 20 MG/ML (2 ML VIAL) ONE (11:09)
[2021-10-03] MEDS ORDERED: BUPIVACAIN-EPI 0.25%-1:200,000 30 ML VIAL INTRAARTIC ONE (11:16)
--- NOTE | 2021-10-03 11:58 | P.OP ---
Date of Procedure: 10/03/21 Preoperative Diagnosis: Internal derangement right knee Postoperative Diagnosis: 1. Tear medial and lateral meniscus right knee 2. 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 Reactive synovitis medial, lateral and suprapatellar compartments right knee Procedure(s) Performed: 1. Arthroscopic partial medial and lateral meniscectomy right knee 2. Arthroscopic microfracture medial tibial plateau right knee 3. Arthroscopic partial synovectomy medial, lateral and suprapatellar compartments right knee Anesthesia: MARYA, local Surgeon: Ovi Marroquin Estimated Blood Loss (ml): 7 Pathology: none sent Condition: stable Disposition: PACU Indications for Procedure: 51-year-old patient seen with progressive right knee pain. After having treatment options discussed, he elected to proceed with arthroscopy. Operative Findings: see description of procedure Description of Procedure: Patient was taken to the operative suite. Patient underwent a general anesthetic by the department of anesthesia. Patient was given preoperative antibiotics. The right lower extremity was placed in a well-padded arthroscopic leg bartlett. The right leg was prepped and draped in the normal sterile orthopedic fashion. A lateral parapatellar and suprapatellar incision was made. Trochars were inserted. Arthroscopy was initiated. Suprapatellar pouch revealed diffuse thick reactive synovitis. The patellofemoral joint appeared to articulate congruently. There was grade 1/2 chondral malacia of the patellofemoral joint without osteochondral tears. The scope was guided into the medial gutter. No loose bodies or plica were identified. The scope was then guided into the medial compartment. A medial parapatellar incision was made. Trocar inserted followed by probe. There was a complex tear involving the mid body and posterior horn junction of the medial meniscus. There was an area of grade 4 chondromalacia medial tibial plateau in that area with a 1 cm area of exposed bone. There was some thick reactive some-itis anteriorly. I performed a partial medial meniscectomy getting down to stable meniscal tissue. I performed a partial synovectomy decompressing the reactive synovitis. I now introduced a microfracture awl and performed a microfracture medial tibial plateau penetrating the bone with resultant bleeding at the microfracture site. The residual meniscus was probed and was found to be stable. There was good decompression of the synovitis. The residual osteochondral surface about the tibial plateau was stable Scope and probe were then guided into the intercondylar notch. Cruciates were identified, probed and found to be stable. The scope and probe were then guided into lateral compartment. There was a radial tear anterior horn lateral meniscus. There was grade 1 chondral moist changes along the lateral femoral condyle and tibial plateau areas. There was some thick reactive synovitis anteriorly. I performed a partial lateral meniscectomy. I performed a partial synovectomy. The residual meniscus was stable. There was good decompression of the synovitis. The scope was in guided back into the suprapatellar compartment. I introduced a motorized shaver into the super patellar compartment. I debrided some piecemeal fragments of meniscus that I encountered. I performed a partial synovectomy. The shaver was now removed. I now took one more look around the entire knee, no residual debris. Instruments were now removed from the joint. The joint was infiltrated with .25% Marcaine. Steri-Strips were applied to the portal sites. Sterile dressings were applied. The patient was placed into a YOKO hose. No tourniquet was utilized. The patient was awakened, transferred to a bed and taken to recovery stable satisfactory condition.
[2021-10-03 12:06] VITALS: TEMP 97.1
[2021-10-03] MEDS: HYDROmorphone 0.5 MG/0.5 ML SYRINGE IVP PRN ×2 (12:07→12:21)
[2021-10-03] MEDS ORDERED: HYDROcodone/APAP 5-325MG 1 EACH TAB ONE (13:22)
[2021-10-03] MEDS ORDERED: HYDROcodone/APAP 5-325MG 1 EACH TAB PO ONE (13:24)
[2021-10-03 13:49] VITALS: BP 120/61; PULSE 76; RESP 16
== END 2021-10-03 14:10 | disposition home or self-care (01) ==
LOC: OR 09:18
PROVIDERS: ATTEND Orthopaedic Surgery
DX: M23.203 Derangement of unspecified medial meniscus due to old tear or injury, right knee (principal); M23.200 Derangement of unspecified lateral meniscus due to old tear or injury, right knee; M94.261 Chondromalacia, right knee; M65.861 Other synovitis and tenosynovitis, right lower leg; E03.9 Hypothyroidism, unspecified; Z90.49 Acquired absence of other specified parts of digestive tract; Z98.890 Other specified postprocedural states; G47.33 Obstructive sleep apnea (adult) (pediatric); Z87.891 Personal history of nicotine dependence; F31.9 Bipolar disorder, unspecified; F43.10 Post-traumatic stress disorder, unspecified; Z79.1 Long term (current) use of non-steroidal anti-inflammatories (NSAID); Z79.890 Hormone replacement therapy; Z79.899 Other long term (current) drug therapy; Z88.0 Allergy status to penicillin; Z88.2 Allergy status to sulfonamides
CPT/HCPCS: 29880; 29879; J2250; J1100; J0690; J2405; J3010; J1885; J2704; J1170; J2001

== ENCOUNTER 2021-12-08 08:59 | Emergency (ER) | payer OTHER, BC ==
[2021-12-08 09:37] VITALS: TEMP 98.3
[2021-12-08] MEDS ORDERED: KETOROLAC 15 MG/ML 1 ML VIAL IVP STA (09:50)
[2021-12-08] MEDS ORDERED: SODIUM CHLORIDE 0.9% 1,000 ML IV STA (09:50)
--- NOTE | 2021-12-08 09:54 | ED ---
Abdominal Pain HPI - General Chief Complaint: Abdominal Pain Stated Complaint: diverticulitis Time Seen by Provider: 12/08/21 09:15 Source: patient, RN notes reviewed Mode of arrival: ambulatory Limitations: no limitations - History of Present Illness Initial Comments: This is a 51-year-old male who presents to the emergency department for left lower quadrant pain. Symptoms started 2 days ago and seem to be worsening. When symptoms initially started, he reports having a slightly elevated temperature. He does have a history of diverticulitis on 09/13/2019, and states that he did not follow up for a colonoscopy. Prior to the pain occurring, he states that he was constipated for several days and had to do a significant amount of straining to produce any bowel movements. Denies any associated nausea or vomiting. He has not had any blood in his stool. Denies any fevers, chills, sore throat, cough, dyspnea, chest pain, palpitations, nausea, vomiting, diarrhea, back pain, or headaches. MD Complaint: abdominal pain Onset/Timin -: days(s) Location: LLQ Associated Symptoms: constipation - Related Data Home Medications Medication Instructions Recorded Confirmed DULoxetine HCL [Cymbalta] 60 mg PO HS 09/13/19 10/03/21 Divalproex ER [Depakote ER] 500 mg PO HS 09/13/19 10/03/21 Atorvastatin [Lipitor] 40 mg PO HS 05/03/21 10/03/21 Ibuprofen 800 mg PO HS PRN 05/03/21 10/03/21 Levothyroxine Sodium [Synthroid] 25 mcg PO DAILY 05/03/21 10/03/21 Lisinopril-Hctz 10-12.5 mg 1 tab PO DAILY 09/30/21 10/03/21 [Zestoretic 10-12.5] amLODIPine [Norvasc] 5 mg PO DAILY 09/30/21 10/03/21 Previous Rx's Medication Instructions Recorded HYDROcodone/APAP 5-325MG [[place] 1 tab PO Q6HR PRN 7 Days #28 tab 10/03/21 5-325] Moxifloxacin HCl [Avelox] 400 mg PO DAILY 10 Days #10 tab 12/08/21 Allergies Allergy/AdvReac Type Severity Reaction Status Date / Time Penicillins Allergy Rash/Hives Verified 12/08/21 09:38 Sulfa (Sulfonamide AdvReac Nausea & Verified 12/08/21 09:38 Antibiotics) Vomiting & Diarrhea Review of Systems ROS Statement: Those systems with pertinent positive or pertinent negative responses have been documented in the HPI. ROS Other: All systems not noted in ROS Statement are negative. Past Medical History Past Medical History: Hyperlipidemia, Hypertension, Thyroid Disorder Additional Past Medical History / Comment(s): diverticulitis History of Any Multi-Drug Resistant Organisms: None Reported Past Surgical History: Cholecystectomy, Hernia Repair, Orthopedic Surgery Additional Past Surgical History / Comment(s): double hernia repair, bilat CTR, COLONOSCOPY,RT knee surgery in april 2021 Past Anesthesia/Blood Transfusion Reactions: No Reported Reaction Past Psychological History: Bipolar, PTSD Smoking Status: Vaper Past Alcohol Use History: None Reported Past Drug Use History: None Reported - Past Family History Mother Family Medical History: No Reported History General Exam Limitations: no limitations General appearance: alert, in no apparent distress Head exam: Present: atraumatic, normocephalic, normal inspection Respiratory exam: Present: normal lung sounds bilaterally. Absent: respiratory distress, wheezes, rales, rhonchi, stridor Cardiovascular Exam: Present: regular rate, normal rhythm, normal heart sounds. Absent: systolic murmur, diastolic murmur, rubs, gallop, clicks GI/Abdominal exam: Present: soft, tenderness (LLQ), normal bowel sounds, other (Bloating). Absent: guarding, rebound, rigid Neurological exam: Present: alert, oriented X3, CN II-XII intact Psychiatric exam: Present: normal affect, normal mood Skin exam: Present: warm, dry, intact, normal color. Absent: rash Course Vital Signs 12/08/21 09:23 Temperature 98.3 F Pulse Rate 77 Respiratory 18 Rate Blood Pressure 119/72 O2 Sat by Pulse 98 Oximetry Medical Decision Making - Medical Decision Making This is a 51-year-old male who presents to the emergency department for abdominal pain. Given the patient's history of diverticulitis and similar symptoms, will obtain lab work and a computed tomography scan of the abdomen and pelvis. Patient given IV fluids and Toradol for symptomatic management. Lab work was nonactionable. Urinalysis is negative. Computed tomography scan of the abdomen and pelvis reveals diverticulitis. There is no abscess formation or other signs to suggest a complicated case. Patient is tolerating oral intake without any difficulty and his pain is controlled at this time. Patient stable for discharge home. Prescription for moxifloxacin prescribed to be taken for 10 days. Advised [id number] ibuprofen and Tylenol as needed for pain relief. He is also instructed to increase his dietary fiber and use [id number] medication as needed to control the constipation. He is also reminded to follow-up for the colonoscopy when he recovers, which he did not do following the previous bout of diverticulitis. Return precautions reviewed in depth, the patient is instructed to return to the emergency department with any new, worsening, or concerning symptoms. Patient verbalized understanding. This case was discussed in detail with the attending ED physician. Presentation, findings, and treatment plan discussed in detail as well. - Lab Data Result diagrams: 12/08/21 09:57 12/08/21 09:57 Lab Results 12/08/21 12/08/21 12/08/21 Range/Units 09:57 09:57 09:57 WBC 9.4 (3.8-10.6) k/uL RBC 4.38 (4.30-5.90) m/uL Hgb 13.8 (13.0-17.5) gm/dL Hct 38.0 L (39.0-53.0) % MCV 86.7 (80.0-100.0) fL MCH 31.5 (25.0-35.0) pg MCHC 36.3 (31.0-37.0) g/dL RDW 12.7 (11.5-15.5) % Plt Count 169 (150-450) k/uL MPV 8.5 Neutrophils % 75 % Lymphocytes % 14 % Monocytes % 6 % Eosinophils % 1 % Basophils % 0 % Neutrophils # 7.1 (1.3-7.7) k/uL Lymphocytes # 1.3 (1.0-4.8) k/uL Monocytes # 0.6 (0-1.0) k/uL Eosinophils # 0.1 (0-0.7) k/uL Basophils # 0.0 (0-0.2) k/uL Sodium 135 L (137-145) mmol/L Potassium 4.2 (3.5-5.1) mmol/L Chloride 102 (98-107) mmol/L Carbon Dioxide 22 (22-30) mmol/L Anion Gap 11 mmol/L BUN 16 (9-20) mg/dL Creatinine 0.66 (0.66-1.25) mg/dL Est GFR (CKD-EPI)AfAm >90 (>60 ml/min/1.73 sqM) Est GFR (CKD-EPI)NonAf >90 (>60 ml/min/1.73 sqM) Glucose 143 H (74-99) mg/dL Calcium 8.9 (8.4-10.2) mg/dL Total Bilirubin 0.7 (0.2-1.3) mg/dL AST 25 (17-59) U/L ALT 35 (4-49) U/L Alkaline Phosphatase 41 (38-126) U/L Troponin I <0.012 (0.000-0.034) ng/mL Total Protein 6.9 (6.3-8.2) g/dL Albumin 4.3 (3.5-5.0) g/dL Amylase 60 (30-110) U/L Lipase 217 (23-300) U/L Urine Color Urine Appearance (Clear) Urine pH (5.0-8.0) Ur Specific [place] (1.001-1.035) Urine Protein (Negative) Urine Glucose (UA) (Negative) Urine Ketones (Negative) Urine Blood (Negative) Urine Nitrite (Negative) Urine Bilirubin (Negative) Urine Urobilinogen (<2.0) mg/dL Ur Leukocyte Esterase (Negative) 12/08/21 Range/Units 10:15 WBC (3.8-10.6) k/uL RBC (4.30-5.90) m/uL Hgb (13.0-17.5) gm/dL Hct (39.0-53.0) % MCV (80.0-100.0) fL MCH (25.0-35.0) pg MCHC (31.0-37.0) g/dL RDW (11.5-15.5) % Plt Count (150-450) k/uL MPV Neutrophils % % Lymphocytes % % Monocytes % % Eosinophils % % Basophils % % Neutrophils # (1.3-7.7) k/uL Lymphocytes # (1.0-4.8) k/uL Monocytes # (0-1.0) k/uL Eosinophils # (0-0.7) k/uL Basophils # (0-0.2) k/uL Sodium (137-145) mmol/L Potassium (3.5-5.1) mmol/L Chloride (98-107) mmol/L Carbon Dioxide (22-30) mmol/L Anion Gap mmol/L BUN (9-20) mg/dL Creatinine (0.66-1.25) mg/dL Est GFR (CKD-EPI)AfAm (>60 ml/min/1.73 sqM) Est GFR (CKD-EPI)NonAf (>60 ml/min/1.73 sqM) Glucose (74-99) mg/dL Calcium (8.4-10.2) mg/dL Total Bilirubin (0.2-1.3) mg/dL AST (17-59) U/L ALT (4-49) U/L Alkaline Phosphatase (38-126) U/L Troponin I (0.000-0.034) ng/mL Total Protein (6.3-8.2) g/dL Albumin (3.5-5.0) g/dL Amylase (30-110) U/L Lipase (23-300) U/L Urine Color Yellow Urine Appearance Clear (Clear) Urine pH 7.0 (5.0-8.0) Ur Specific [place] 1.013 (1.001-1.035) Urine Protein Negative (Negative) Urine Glucose (UA) Negative (Negative) Urine Ketones Negative (Negative) Urine Blood Negative (Negative) Urine Nitrite Negative (Negative) Urine Bilirubin Negative (Negative) Urine Urobilinogen <2.0 (<2.0) mg/dL Ur Leukocyte Esterase Negative (Negative) - EKG Data EKG Comments: Sinus rhythm. Ventricular rate 71 bpm, CT interval 157 ms, QRS duration 110 ms, QTC 385 ms. - Radiology Data Radiology results: report reviewed, image reviewed Disposition Clinical Impression: Diverticulitis Disposition: HOME SELF-CARE Instructions (If sedation given, give patient instructions): Diverticulitis (ED), Diverticulitis Diet (ED) Additional Instructions: Return to the emergency department with any new, worsening, or concerning symptoms. Take the antibiotic as prescribed for 10 days. Make sure that you remain well-hydrated, increase your dietary fiber, and reduce your constipation with [id number] medication as needed. Alternate with ibuprofen and Tylenol as needed for pain relief. Make sure that you follow through with the c olonoscopy. Follow up with your primary care provider in 1-2 days. Prescriptions: Moxifloxacin HCl [Avelox] 400 mg PO DAILY 10 Days #10 tab Is patient prescribed a controlled substance at d/c from ED?: No Referrals: [facility],Clinic [Primary Care Provider] - 1-2 days
[2021-12-08 10:16] LABS: Potassium 4.2 mmol/L (3.5-5.1)
[2021-12-08 10:17] LABS: ALT 35 U/L (4-49); AST 25 U/L (17-59); African American GFR (CKD) >90 (>60 ml/min/1.73 sqM); Albumin 4.3 g/dL (3.5-5.0); Alkaline Phosphatase 41 U/L (38-126); Amylase 60 U/L (30-110); Anion Gap 11 mmol/L; Basophils % (A) 0 %; Blood Urea Nitrogen 16 mg/dL (9-20); Calcium 8.9 mg/dL (8.4-10.2); Carbon Dioxide 22 mmol/L (22-30); Chloride 102 mmol/L (98-107); Eosinophils # (A) 0.1 k/uL (0-0.7); Eosinophils % (A) 1 %; Glucose 143 mg/dL (74-99); HGB 13.8 gm/dL (13.0-17.5); Lipase 217 U/L (23-300); Lymphocytes # (A) 1.3 k/uL (1.0-4.8); Lymphocytes % (A) 14 %; MCH 31.5 pg (25.0-35.0); MCHC 36.3 g/dL (31.0-37.0); MCV 86.7 fL (80.0-100.0); Mean Platelet Volume 8.5; Monocytes # (A) 0.6 k/uL (0-1.0); Monocytes % (A) 6 %; Neutrophils # (A) 7.1 k/uL (1.3-7.7); Neutrophils % (A) 75 %; Non-African American GFR(CKD) >90 (>60 ml/min/1.73 sqM); Platelet Count 169 k/uL (150-450); RBC 4.38 m/uL (4.30-5.90); RDW 12.7 % (11.5-15.5); Sodium 135 mmol/L (137-145); Total Bilirubin 0.7 mg/dL (0.2-1.3); Total Protein 6.9 g/dL (6.3-8.2); WBC 9.4 k/uL (3.8-10.6)
[2021-12-08 10:25] LABS: Appearance,Urine Clear (Clear); Bilirubin,Urine Negative (Negative); Blood,Urine Negative (Negative); Color,Urine Yellow; Glucose,Urine (UA) Negative (Negative); Ketones,Urine Negative (Negative); Leukocyte Esterase,Urine Negative (Negative); Nitrite,Urine Negative (Negative); Protein,Urine Negative (Negative); Specific Gravity,Urine 1.013 (1.001-1.035); Urobilinogen,Urine <2.0 mg/dL (<2.0)
--- NOTE | 2021-12-08 11:56 | CT ---
EXAMINATION TYPE: CT abdomen pelvis w con DATE OF EXAM: 12/08/2021 COMPARISON: CT 09/13/2019 HISTORY: Abdominal pain hx diverticulitis. Hx loreta, hernia repair CT DLP: 1983.8 mGycm Automated exposure control for dose reduction was used. TECHNIQUE: Helical acquisition of images from the lung bases through the pelvis have been completed. CONTRAST: Performed without Oral Contrast and with IV Contrast, patient injected with 100 mL of Isovue 300. FINDINGS: Anterior abdominal wall shows postop changes, multiple metallic coils are present LUNG BASES: No significant abnormality is appreciated. AORTA: No significant abnormality is appreciated. LIVER/GB: Liver shows low attenuation and is enlarged likely due to hepatic steatosis. Gallbladder is absent. PANCREAS: No significant abnormality is seen. SPLEEN: No significant abnormality is seen. ADRENALS: No significant abnormality is seen. KIDNEYS: No significant change is seen, cortical cyst again noted left kidney midpole laterally. REPRODUCTIVE ORGANS: No significant abnormality is seen BOWEL: Diverticular changes associated with the colon. Along the descending colon there is some infl ammatory change along the left paracolic gutter, axial image #46. FREE AIR: No Free Air visible. ASCITES: None visible. PELVIC ADENOPATHY: None visualized. RETROPERITONEAL ADENOPATHY: No Retroperitoneal Adenopathy visible. URINARY BLADDER: No significant abnormality is seen. OSSEOUS STRUCTURES: No significant abnormality is seen. IMPRESSION: DIVERTICULITIS WITHOUT ABSCESS. FOLLOW-UP SUGGESTED.
[2021-12-08 12:45] VITALS: BP 113/59; PULSE 71; RESP 16
== END 2021-12-08 12:45 | disposition home or self-care (01) ==
LOC: EC 08:59
DX: K57.92 Diverticulitis of intestine, part unspecified, without perforation or abscess without bleeding (principal); E78.5 Hyperlipidemia, unspecified; I10 Essential (primary) hypertension; F17.290 Nicotine dependence, other tobacco product, uncomplicated; Z88.0 Allergy status to penicillin; Z88.2 Allergy status to sulfonamides
CPT/HCPCS: 36415; 93005; 80053; 82150; 83690; 84484; 85025; 81003; 74177; 99284; 96374; 96361; J1885; Q9967

== ENCOUNTER → 2022-01-31 | Outpatient (CLI) | payer OTHER ==
--- NOTE | 2022-01-31 11:37 | CTL ---
EXAMINATION TYPE: CT Low Dose Lung DATE OF EXAM ORDERED: 01/31/2022 HISTORY: . Lung cancer screening CT DLP: [address] CTDI: 2.75 mGy Automated exposure control for dose reduction was used. SCREENING VISIT: COMPARISON: None TECHNIQUE: Low dose computed tomography scan was performed through the chest at 1 mm thick sections a nd reconstructed images in multiple planes at 1 mm and [address] DIAGNOSTIC QUALITY: Limited, but interpretable FINDINGS: Exam significantly limited. The lungs are clear. There is no pleural effusion or pneumothorax. No consolidative pneumonia. Mild b asilar bronchiectasis. No focal pneumonia. No sizable pulmonary nodule. Aorta of normal caliber. Heart size normal. No significant coronary artery disease. Small hiatal darrel ia. Hypertrophic changes of the spine. IMPRESSION: 1. No evidence of sizable pulmonary nodule which are mild basilar bronchiectasis. CT LUNG RAD AND CT CHEST RECOMMENDATION: Lung-Rad 1 Negative: Continue annual screening with LDCT in 12 months.
== END | disposition home or self-care (01) ==
LOC: RADCTMAIN 09:46
DX: Z12.2 Encounter for screening for malignant neoplasm of respiratory organs (principal); J47.9 Bronchiectasis, uncomplicated; Z87.891 Personal history of nicotine dependence
CPT/HCPCS: 71271

== ENCOUNTER 2022-07-23 14:57 | Emergency (ER) | payer OTHER, BC ==
[2022-07-23 15:01] VITALS: RESP 18; TEMP 97.7
[2022-07-23 15:48] LABS: Basophils % (A) 0 %; Eosinophils # (A) 0.1 k/uL (0-0.7); Eosinophils % (A) 2 %; HCT 42.1 % (39.0-53.0); HGB 14.4 gm/dL (13.0-17.5); Lymphocytes # (A) 2.1 k/uL (1.0-4.8); Lymphocytes % (A) 25 %; MCH 29.6 pg (25.0-35.0); MCHC 34.2 g/dL (31.0-37.0); MCV 86.6 fL (80.0-100.0); Mean Platelet Volume 7.7; Monocytes # (A) 0.6 k/uL (0-1.0); Monocytes % (A) 7 %; Neutrophils # (A) 5.2 k/uL (1.3-7.7); Neutrophils % (A) 62 %; Platelet Count 190 k/uL (150-450); RBC 4.86 m/uL (4.30-5.90); WBC 8.4 k/uL (3.8-10.6)
[2022-07-23 16:02] LABS: Partial Thromboplastin Time 23.1 sec (22.0-30.0); Prothrombin Time 10.4 sec (9.0-12.0)
[2022-07-23 16:04] LABS: ALT 44 U/L (4-49); AST 29 U/L (17-59); African American GFR (CKD) >90 (>60 ml/min/1.73 sqM); Albumin 4.7 g/dL (3.5-5.0); Alkaline Phosphatase 44 U/L (38-126); Anion Gap 11 mmol/L; Blood Urea Nitrogen 19 mg/dL (9-20); Calcium 9.1 mg/dL (8.4-10.2); Carbon Dioxide 25 mmol/L (22-30); Chloride 101 mmol/L (98-107); Glucose 116 mg/dL (74-99); Magnesium 1.8 mg/dL (1.6-2.3); Non-African American GFR(CKD) >90 (>60 ml/min/1.73 sqM); Potassium 4.1 mmol/L (3.5-5.1); Sodium 137 mmol/L (137-145); Total Bilirubin 0.6 mg/dL (0.2-1.3); Total Protein 7.6 g/dL (6.3-8.2)
[2022-07-23] MEDS ORDERED: ASPIRIN 81 MG PO STA (16:34)
--- NOTE | 2022-07-23 16:38 | ED ---
Chest Pain HPI - General Chief Complaint: Chest Pain Stated Complaint: Chest Pain/sob Time Seen by Provider: 07/23/22 16:15 Source: patient Mode of arrival: ambulatory Limitations: no limitations - History of Present Illness Initial Comments: This patient is a 52-year-old man who presents with complaint of left-sided chest pain that is been going on since between 4 and 5 this morning. He states that it developed while he was in bed. He woke with it but he does not believe he woke up due to pain. The patient also has noted occasional palpitations that have been going on for weeks now. There is no dyspnea, diaphoresis, nausea or vomiting. Patient had gone to the [facility] earlier today for results of lab testing that he had done, and then presented here to have further evaluation of the pain. Patient has not previously had stress or cardiac testing. MD Complaint: chest pain Onset/Timin -: hour(s) Onset: during rest Pain Location: left chest Pain Radiation: back Severity: moderate Quality: dull Consistency: constant Improves With: nothing Worsens With: nothing Treatments Prior to Arrival: none - Related Data Home Medications Medication Instructions Recorded Confirmed Divalproex ER [Depakote ER] 500 mg PO DAILY@1500 09/13/19 07/23/22 Lisinopril-Hctz 10-12.5 mg 2 tab PO DAILY@149909/30/21 07/23/22 [Zestoretic 10-12.5] amLODIPine [Norvasc] 5 mg PO DAILY@1500 09/30/21 07/23/22 DULoxetine HCL [Cymbalta] 40 mg PO DAILY@149904/02/22 07/23/22 Gabapentin [Neurontin] 200 mg PO DAILY@149904/08/22 07/23/22 Atorvastatin [Lipitor] 40 mg PO DAILY@149907/23/22 07/23/22 Levothyroxine Sodium [Synthroid] 50 mcg PO DAILY 07/23/22 07/23/22 Allergies Allergy/AdvReac Type Severity Reaction Status Date / Time Penicillins Allergy Rash/Hives Verified 07/23/22 18:19 Sulfa (Sulfonamide AdvReac Nausea & Verified 07/23/22 18:19 Antibiotics) Vomiting & Diarrhea Review of Systems ROS Statement: Those systems with pertinent positive or pertinent negative responses have been documented in the HPI. ROS Other: All systems not noted in ROS Statement are negative. EKG Findings - EKG Results: EKG: interpreted by ERMD, sinus rhythm (With occasional supraventricular premature complexes. Rate 78 bpm), normal axis, normal QRS - Blocks, [place], Hypertrophy, ST Abn: Repolarization changes or abnormalities: nonspecific abnormality, ST segment, and/or T wave Past Medical History Past Medical History: Diabetes Mellitus, Hearing Disorder / Deafness, Hyperlipidemia, Hypertension, Sleep Apnea/CPAP/BIPAP, Thyroid Disorder Additional Past Medical History / Comment(s): Diverticulitis, borderline diabetic, CPAP use, hard of hearing. History of Any Multi-Drug Resistant Organisms: None Reported Past Surgical History: Cholecystectomy, Hernia Repair, Orthopedic Surgery Additional Past Surgical History / Comment(s): Double hernia repair, bilateral carpal tunnel release, colonoscopy, right knee surgery. Past Anesthesia/Blood Transfusion Reactions: No Reported Reaction Past Psychological History: Bipolar, PTSD Smoking Status: Former smoker, Vaper Past Alcohol Use History: None Reported Past Drug Use History: None Reported - Past Family History Mother Family Medical History: No Reported History General Exam Limitations: no limitations General appearance: alert, in no apparent distress Head exam: Present: atraumatic, normocephalic Eye exam: Present: normal appearance. Absent: scleral icterus, conjunctival injection Neck exam: Present: normal inspection Respiratory exam: Present: normal lung sounds bilaterally. Absent: respiratory distress, wheezes, rales, rhonchi, stridor Cardiovascular Exam: Present: regular rate, normal rhythm, normal heart sounds. Absent: systolic murmur, diastolic murmur, rubs, gallop GI/Abdominal exam: Present: soft. Absent: distended, tenderness, guarding, rebound, rigid, mass Extremities exam: Present: normal inspection, normal capillary refill. Absent: pedal edema, calf tenderness Back exam: Present: normal inspection. Absent: CVA tenderness (R), CVA tenderness (L) Neurological exam: Present: alert Skin exam: Present: warm, dry, intact, normal color. Absent: rash Course Vital Signs 07/23/22 07/23/22 14:58 18:44 Temperature 97.7 F Pulse Rate 84 72 Respiratory 18 18 Rate Blood Pressure 161/91 124/67 O2 Sat by Pulse 97 99 Oximetry Chest Pain [facility] - MDM This patient is a 52-year-old man here with episode of chest pain. The patient is feeling well and would like to go home. He is asymptomatic. We discussed appropriate further care and follow-up, including recommendation of having near term stress test. If there is any difficulty in establishing this follow-up he will return to have further evaluation here and possible admission for stress test. The patient had chest x-ray which I interpreted as being negative for acute infiltrate, congestive heart failure, or pneumothorax. Was pt. sent in by a medical professional or institution (, PA, RESIDENT ASSISTANT CNA, urgent care, hospital, or senior care...) When possible be specific @ -[No] Did you speak to anyone other than the patient for history (EMS, parent, family, police, friend...)? What history was obtained from this source @ -[No] Did you review nursing and triage notes (agree or disagree)? Why? @ -[I reviewed and agree with nursing and triage notes] Were old charts reviewed (outside hosp., previous admission, EMS record, old EKG, old radiological studies, urgent care reports/EKG's, senior care records)? Report findings @ -[No old charts were reviewed] Differential Diagnosis (chest pain, altered mental status, abdominal pain women, abdominal pain men, vaginal bleeding, weakness, fever, dyspnea, syncope, headache, dizziness, GI bleed, back pain, seizure, CVA, palpatations, mental health, musculoskeletal)? @ -[Differential Chest Pain: Stable Angina, Unstable Angina, STEMI, NSTEMI Aortic Dissection, Pneumothorax, Musculoskeletal, Esophageal Spasm GERD, Cholecystitis, Pancreatitis, Zoster, this is not meant to be an all-inclusive list. EKG interpreted by me (3pts min.). @ -[As above] X-rays interpreted by me (1pt min.). @ -[As above CT interpreted by me (1pt min.). @ -[None done] U/S interpreted by me (1pt. min.). @ -[None done] What testing was considered but not performed or refused? (CT, X-rays, U/S, labs)? Why? @ -[None] What meds were considered but not given or refused? Why? @ -[None] Did you discuss the management of the patient with other professionals (professionals i.e. , PA, RESIDENT ASSISTANT CNA, lab, RT, psych nurse, drug abuse social worker, sand worker, teacher, control systems drafting officer, director of casework services)? Give summary @ -[No] Was smoking cessation discussed for >3mins.? @ -[No] Was critical care preformed (if so, how long)? @ -[No] Were there social determinants of health that impacted care today? How? (Homelessness, low income, unemployed, alcoholism, drug addiction, transportation, low edu. Level, literacy, decrease access to med. care, senior care, rehab)? @ -[No] Was there de-escalation of care discussed even if they declined (Discuss DNR or withdrawal of care, Hospice)? DNR status @ -[No] What co-morbidities impacted this encounter? (DM, HTN, Smoking, COPD, CAD, Cancer, CVA, ARF, Chemo, Hep., AIDS, mental health diagnosis, sleep apnea, morbid obesity)? @ -[None] Was patient admitted / discharged? Hospital course, mention meds given and route, prescriptions, significant lab abnormalities, going to OR and other pertinent info. @ -[Discharged Undiagnosed new problem with uncertain prognosis? @ -[No] Drug Therapy requiring intensive monitoring for toxicity (Heparin, Nitro, Insulin, Cardizem)? @ -[No] Were any procedures done? @ -[No] Diagnosis/symptom? @ -[[Acute chest pain Acute, or Chronic, or Acute on Chronic? @ -Acute Uncomplicated (without systemic symptoms) or Complicated (systemic symptoms)? @ -[Complicated Side effects of treatment? @ -[No] Exacerbation, Progression, or Severe Exacerbation? @ -[No] Poses a threat to life or bodily function? How? (Chest pain, [place], [place], pneumonia, PE, COPD, DKA, ARF, appy, cholecystitis, CVA, Diverticulitis, Homicidal, Suicidal, threat to staff... and all critical care pts) @ -[No] Disposition Clinical Impression: Chest pain Disposition: HOME SELF-CARE Condition: Good Instructions (If sedation given, give patient instructions): Chest Pain (ED) Is patient prescribed a controlled substance at d/c from ED?: No Referrals: [facility],Clinic [Primary Care Provider] - 1-2 days Junior Flores MD [STAFF PHYSICIAN] - 1-2 days
[2022-07-23] MEDS ORDERED: KETOROLAC 15 MG/ML 1 ML VIAL IVP STA (16:40)
--- NOTE | 2022-07-23 17:23 | XR ---
EXAMINATION TYPE: XR chest 2V DATE OF EXAM: 07/23/2022 5:18 PM COMPARISON: Chest radiographs from 01/15/2022, CT low-dose lung cancer screening 01/31/2022 TECHNIQUE: XR chest 2V Frontal and lateral views of the chest. CLINICAL INDICATION:Male, 52 years old with history of chest pain; FINDINGS: Lungs/Pleura: There is no evidence of pleural effusion, focal consolidation, or pneumothorax. Pulmonary vascularity: Unremarkable. Heart/mediastinum: Cardiomediastinal silhouette is prominent in size. Musculoskeletal: No acute osseous pathology. IMPRESSION: No acute cardiopulmonary disease/process.
[2022-07-23 18:45] VITALS: BP 124/67; PULSE 72
== END 2022-07-23 18:45 | disposition home or self-care (01) ==
LOC: EC 14:57
DX: R07.89 Other chest pain (principal); I10 Essential (primary) hypertension; E11.9 Type 2 diabetes mellitus without complications; E78.5 Hyperlipidemia, unspecified; E07.9 Disorder of thyroid, unspecified; Z79.890 Hormone replacement therapy; Z79.899 Other long term (current) drug therapy; Z88.0 Allergy status to penicillin; Z88.2 Allergy status to sulfonamides; Z87.891 Personal history of nicotine dependence
CPT/HCPCS: 36415; 93005; 83880; 80053; 83735; 84484; 85025; 85610; 85730; 71046; 99285; 96374; J1885

== ENCOUNTER → 2022-08-27 | Outpatient (CLI) | payer OTHER ==
--- NOTE | 2022-09-02 14:59 | MR ---
EXAMINATION TYPE: MR knee LT wo con DATE OF EXAM: 08/27/2022 COMPARISON: None HISTORY: Left knee pain TECHNIQUE: Multiplanar, multisequence imaging of the left knee is performed without IV contrast. FINDINGS: MEDIAL MENISCUS: Radial tear posterior horn medial meniscus. Anterior horn is intact. LATERAL MENISCUS: Anterior and posterior horns are intact without tear. CRUCIATE LIGAMENTS: The anterior and posterior cruciate ligaments are intact and unremarkable. COLLATERAL LIGAMENTS: The medial collateral ligament and lateral collateral ligament complex are inta ct and unremarkable. EXTENSOR MECHANISM: Visualized quadriceps and patellar tendons are intact. EFFUSION: No significant suprapatellar joint effusion. POPLITEAL CYST: No popliteal/hadley cyst. TRICOMPARTMENT SPACES: Mild narrowing medial tibiofemoral joint space. CARTILAGE: Medial compartmental cartilaginous thinning without focal defect. BONE MARROW SIGNAL: No focal abnormal marrow signal is appreciated. OTHER: No additional significant abnormality is appreciated. IMPRESSION: 1 radial tear posterior horn medial meniscus. 2. Degenerative narrowing medial tibiofemoral joint space with cartilaginous thinning.
== END | disposition home or self-care (01) ==
LOC: RADMRIMAIN 18:44
PROVIDERS: ATTEND Orthopaedic Surgery
DX: S83.242A Other tear of medial meniscus, current injury, left knee, initial encounter (principal); M17.12 Unilateral primary osteoarthritis, left knee

== ENCOUNTER 2022-09-25 05:03 | Emergency (ER) | payer OTHER ==
--- NOTE | 2022-09-25 07:28 | XR ---
EXAMINATION TYPE: XR ankle complete 3 views RT, XR knee complete 3 views RT, XR foot complete 3 views RT DATE OF EXAM: 09/25/2022 COMPARISON: NONE HISTORY: 52-year-old male fall with pain to the knee, ankle, and first toe FINDINGS: Ankle: Ankle mortise is congruent with preservation of the distal tibiofibular overlap. Talar dome is intact . There may be some mild anterior soft tissue swelling. Tiny posterior and plantar heel spurs. Some m ild degenerative spurring from the dorsal talonavicular joint. Foot: There is a bipartite tibial sesamoid. No acute fracture, subluxation, or dislocation. Knee: Degenerative spurring in the 3 compartments. There is some anterior soft tissue swelling. Underlying small knee joint effusion. Extensor mechanism appears intact. No acute fracture, subluxation, or disl ocation seen. Eccentric joint space narrowing medial compartment. IMPRESSION: 1. Right knee: Tricompartmental degenerative spurring but with at least mild joint space narrowing in the medial compartment. Anterior soft tissue swelling. Small knee joint effusion but without acute o sseous abnormality seen. If concern for internal derangement, MRI can be considered. 2. Ankle: There may be mild anterior soft tissue swelling. No acute osseous abnormality seen. 3. Foot: No acute osseous abnormality disease.
--- NOTE | 2022-09-25 07:45 | ED ---
General Adult HPI - General Chief complaint: Extremity Injury, Lower Stated complaint: Toe injury Time Seen by Provider: 09/25/22 07:00 Source: patient, RN notes reviewed, old records reviewed Mode of arrival: ambulatory Limitations: no limitations - History of Present Illness Initial comments: This is a 52-year-old male who presents to the emergency department complaining that he tripped over his dog. Patient states it is left first toe hurts. Patient states that he also tore the skin on the bottom of his first toe. Patient states initially thought he hurt his knee but it doesn't hurt any longer. Patient denies any central neck. Patient denies any other injury at this time. Patient states he is up-to-date on his tetanus. - Related Data Home Medications Medication Instructions Recorded Confirmed Divalproex ER [Depakote ER] 500 mg PO DAILY@1500 09/13/19 07/23/22 Lisinopril-Hctz 10-12.5 mg 2 tab PO DAILY@149909/30/21 07/23/22 [Zestoretic 10-12.5] amLODIPine [Norvasc] 5 mg PO DAILY@1500 09/30/21 07/23/22 DULoxetine HCL [Cymbalta] 40 mg PO DAILY@1500 04/02/22 07/23/22 Gabapentin [Neurontin] 200 mg PO DAILY@1500 04/08/22 07/23/22 Atorvastatin [Lipitor] 40 mg PO DAILY@1500 07/23/22 07/23/22 Levothyroxine Sodium [Synthroid] 50 mcg PO DAILY 07/23/22 07/23/22 Allergies Allergy/AdvReac Type Severity Reaction Status Date / Time Penicillins Allergy Rash/Hives Verified 09/25/22 05:12 Sulfa (Sulfonamide AdvReac Nausea & Verified 09/25/22 05:12 Antibiotics) Vomiting & Diarrhea Review of Systems ROS Statement: Those systems with pertinent positive or pertinent negative responses have been documented in the HPI. ROS Other: All systems not noted in ROS Statement are negative. Past Medical History Past Medical History: Diabetes Mellitus, Hearing Disorder / Deafness, Hyperlipidemia, Hypertension, Sleep Apnea/CPAP/BIPAP, Thyroid Disorder Additional Past Medical History / Comment(s): Diverticulitis, borderline diabetic, CPAP use, hard of hearing. History of Any Multi-Drug Resistant Organisms: None Reported Past Surgical History: Cholecystectomy, Hernia Repair, Orthopedic Surgery Additional Past Surgical History / Comment(s): Double hernia repair, bilateral carpal tunnel release, colonoscopy, right knee surgery. Past Anesthesia/Blood Transfusion Reactions: No Reported Reaction Past Psychological History: Bipolar, PTSD Smoking Status: Vaper Past Alcohol Use History: None Reported Past Drug Use History: None Reported - Past Family History Mother Family Medical History: No Reported History General Exam - General Exam Comments Initial Comments: GENERAL Patient is well-developed and well-nourished. Patient is in mild distress. EYES Patient's pupils are equal and round. Extraocular motion is intact SKIN Patient has about a centimeter diameter area that is an avulsion on the bottom of his first toe on the right NEURO The patient is alert and oriented 3 PYSCH Patient has normal interpersonal interactions. MUSCULOSKELETAL Toe is tender to touch on the proximal phalanx Limitations: no limitations Course Vital Signs 09/25/22 05:12 Pulse Rate 66 Respiratory 18 Rate Blood Pressure 148/83 O2 Sat by Pulse 98 Oximetry Medical Decision Making - Medical Decision Making Was pt. sent in by a medical professional or institution (, PA, BONDACTOR MACHINE OPERATOR, urgent care, hospital, or prison...) When possible be specific @ -No Did you speak to anyone other than the patient for history (EMS, parent, family, police, friend...)? What history was obtained from this source @ -No Did you review nursing and triage notes (agree or disagree)? Why? @ -I reviewed and agree with nursing and triage notes Were old charts reviewed (outside hosp., previous admission, EMS record, old EKG, old radiological studies, urgent care reports/EKG's, prison records)? Report findings @ -No old charts were reviewed Differential Diagnosis (chest pain, altered mental status, abdominal pain women, abdominal pain men, vaginal bleeding, weakness, fever, dyspnea, syncope, headache, dizziness, GI bleed, back pain, seizure, CVA, palpatations, mental health, musculoskeletal)? @ -Differential Musculoskeletal Muscular strain, contusion, ligament sprain, fracture, arthritis, septic arthritis, bursitis, cellulitis, muscle spasm, nerve compression, DVT, arterial occlusion, herpes zoster, electrolyte abnormality, tumor.... This is not meant to be in all inclusive list EKG interpreted by me (3pts min.). @ -As above X-rays interpreted by me (1pt min.). @ -X-ray the knee ankle and foot show no osseous abnormality CT interpreted by me (1pt min.). @ -None done U/S interpreted by me (1pt. min.). @ -None done What testing was considered but not performed or refused? (CT, X-rays, U/S, labs)? Why? @ -None What meds were considered but not given or refused? Why? @ -None Did you discuss the management of the patient with other professionals (professionals i.e. , PA, BONDACTOR MACHINE OPERATOR, lab, RT, psych nurse, dialysis social worker, riding silks custodian, teacher, worldwide chief creative officer, case assistant)? Give summary @ -No Was smoking cessation discussed for >3mins.? @ -No Was critical care preformed (if so, how long)? @ -No Were there social determinants of health that impacted care today? How? (Homelessness, low income, unemployed, alcoholism, drug addiction, transportation, low edu. Level, literacy, decrease access to med. care, prison, rehab)? @ -No Was there de-escalation of care discussed even if they declined (Discuss DNR or withdrawal of care, Hospice)? DNR status @ -No What co-morbidities impacted this encounter? (DM, HTN, Smoking, COPD, CAD, Cancer, CVA, ARF, Chemo, Hep., AIDS, mental health diagnosis, sleep apnea, morbid obesity)? @ -None Was patient admitted / discharged? Hospital course, mention meds given and route, prescriptions, significant lab abnormalities, going to OR and other pertinent info. @ -Patient was able to ambulate the wound was covered and patient was told to walk flat-footed so that the patient would not continue to irritate the sprain toe Undiagnosed new problem with uncertain prognosis? @ -No Drug Therapy requiring intensive monitoring for toxicity (Heparin, Nitro, Insulin, Cardizem)? @ -No Were any procedures done? @ -No Diagnosis/symptom? @ -Sprain toe Acute, or Chronic, or Acute on Chronic? @ -Acute Uncomplicated (without systemic symptoms) or Complicated (systemic symptoms)? @ -Uncomplicated Side effects of treatment? @ -No Exacerbation, Progression, or Severe Exacerbation? @ -No Poses a threat to life or bodily function? How? (Chest pain, [place], [place], pneumonia, PE, COPD, DKA, ARF, appy, cholecystitis, CVA, Diverticulitis, Homicidal, Suicidal, threat to staff... and all critical care pts) @ -No Disposition Clinical Impression: Sprain of toe Disposition: HOME SELF-CARE Condition: Good Instructions (If sedation given, give patient instructions): Sprain (ED) Is patient prescribed a controlled substance at d/c from ED?: No Referrals: [facility],Clinic [Primary Care Provider] - 1-2 days Time of Disposition: 08:12
[2022-09-25 08:27] VITALS: BP 142/77; PULSE 67; RESP 16; TEMP 97.8
== END 2022-09-25 08:59 | disposition home or self-care (01) ==
LOC: EC 05:03
DX: S93.502A Unspecified sprain of left great toe, initial encounter (principal); E11.9 Type 2 diabetes mellitus without complications; I10 Essential (primary) hypertension; E78.5 Hyperlipidemia, unspecified; E07.9 Disorder of thyroid, unspecified; F31.9 Bipolar disorder, unspecified; Z79.890 Hormone replacement therapy; Z79.899 Other long term (current) drug therapy; Z88.0 Allergy status to penicillin; Z88.2 Allergy status to sulfonamides; W01.0XXA Fall on same level from slipping, tripping and stumbling without subsequent striking against object, initial encounter
CPT/HCPCS: 99283

== ENCOUNTER → 2023-03-03 | Outpatient (CLI) | payer OTHER ==
--- NOTE | 2023-03-08 12:02 | CTL ---
EXAMINATION TYPE: CT Low Dose Lung DATE OF EXAM: 03/03/2023 9:54 AM CLINICAL INDICATION:Male, 52 years old with history of Z87.891 PERSONAL HX TOBACCO USE; personal hx o f nicotine dependence, 1ppd X 20 years, quit 2014 , history of tobacco use. COMPARISON: 01/31/2022 CT low dose lung TECHNIQUE: CT scan of the chest obtained without contrast from approximately the lung apices through the upper abdomen. Axial, coronal and sagittal reformatted images were obtained. Low dose technique w as utilized for nodule screening purposes. CT DLP: 178.3 mGycm, Automated exposure control for dose reduction was used. CT Contrast: IV contrast used: None. Oral contrast used: None. FINDINGS: Lack of intravenous contrast and low dose technique limits the evaluation of the vascular and soft ti ssue structures. LUNGS: No evidence of pulmonary fibrosis. No evidence of focal consolidation. No significant emphysem atous changes. Nodules: No sizable pulmonary nodules are detected. PLEURA: No sizeable pleural effusion or pneumothorax. AIRWAY: Central airways are patent. Mild bilateral lower lobe bronchiectasis. LOWER NECK: No significant findings. MEDIASTINUM: No evidence of enlarged nodes.. HEART: Heart size upper normal. Mild coronary artery calcification. No appreciable pericardial effusi on. VASCULATURE: No significant aortic calcification seen. Ascending aorta is 3.4 CM, descending is 2.6 CM. Aorta is considered within normal limits. Pulmonary trunk does not appear enlarged. Vessels oth erwise not further assessed without contrast. SOFT TISSUES/LYMPH NODES: Mild bilateral gynecomastia. No enlarged axillary nodes. UPPER ABDOMEN: Small sliding hiatal hernia. No mass of the visualized adrenals. MUSCULOSKELETAL: Mild to moderate disc degeneration changes are present throughout the thoracolumbar spine. No acute findings. IMPRESSION: 1. No clinically significant pulmonary nodules. CT LUNG RAD AND CT CHEST RECOMMENDATION: Lung-Rad 1 Negative: Continue annual screening with LDCT in 12 months. C Modifier (Personal history of lung cancer?): No. S Modifier (Other clinically significant or potentially significant findings?): No. Other significant or potentially significant abnormalities: None. Recommend smoking cessation (if current smoker), or continuation of smoking cessation (if prior smoke r). Annual screening for lung cancer with low-dose computed tomography is recommended in adults ages 55 to 77 years who have a 30 pack-year smoking history and currently smoke or have quit within the pa st 15 years. Screening should be discontinued once a person has not smoked for 15 years or develops a health problem that substantially limits life expectancy or the ability or willingness to have curat jamil lung surgery. Lung rads 2021 [email or web address]
== END | disposition home or self-care (01) ==
LOC: RADCTMAIN 09:24
DX: Z12.2 Encounter for screening for malignant neoplasm of respiratory organs (principal); Z87.891 Personal history of nicotine dependence
CPT/HCPCS: 71271

== ENCOUNTER → 2023-08-14 | Outpatient (CLI) | payer OTHER ==
[2023-08-14 08:29] LABS: Partial Thromboplastin Time 23.7 sec (22.0-30.0)
[2023-08-14 15:33] LABS: BUN/Creat Ratio 21.78 Ratio (12.00-20.00); Basophils # (A) 0.04 X 10*3/uL (0.00-0.10); Basophils % (A) 0.6 %; Blood Urea Nitrogen 19.6 mg/dL (9.0-27.0); Calcium 9.7 mg/dL (8.7-10.3); Carbon Dioxide 25.7 mmol/L (21.6-31.8); Chloride 101 mmol/L (96-109); Eosinophils # (A) 0.15 X 10*3/uL (0.04-0.35); Eosinophils % (A) 2.3 %; Glucose 136 mg/dL (70-110); HCT 43.1 % (39.6-50.0); HGB 14.4 g/dL (13.0-17.0); Lymphocytes # (A) 2.14 X 10*3/uL (0.90-5.00); MCH 30.5 pg (27.0-32.0); MCHC 33.4 g/dL (32.0-37.0); MCV 91.3 FL (80.0-97.0); Mean Platelet Volume 10.8 FL (9.5-12.2); Monocytes # (A) 0.53 X 10*3/uL (0.20-1.00); Monocytes % (A) 8.2 %; NRBC Per 100 WBC 0 X 10*3/uL (0.00-0.01); Neutrophils # (A) 3.62 X 10*3/uL (1.80-7.70); Neutrophils % (A) 55.7 %; Platelet Count 207 X 10*3/uL (140-440); Potassium 4.4 mmol/L (3.5-5.5); RBC 4.72 X 10*6/uL (4.40-5.60); Sodium 140 mmol/L (135-145); WBC 6.49 X 10*3/uL (4.50-10.00)
[2023-08-14 23:46] LABS: Prothrombin Time 10.5 sec (10.0-12.5)
[2023-08-14 23:47] LABS: INR 0.9 (<1.2)
== END | disposition home or self-care (01) ==
LOC: LABPAT 07:33
PROVIDERS: ATTEND Orthopaedic Surgery
DX: Z01.818 Encounter for other preprocedural examination (principal); M17.11 Unilateral primary osteoarthritis, right knee; I49.1 Atrial premature depolarization; Z22.322 Carrier or suspected carrier of Methicillin resistant Staphylococcus aureus
CPT/HCPCS: 36415; 80048; 85025; 85610; 85730; 87070; 93005

== ENCOUNTER 2023-08-31 08:02 | Day surgery (SDC) | payer OTHER ==
--- NOTE | 2023-08-30 11:27 | HP ---
HISTORY AND PHYSICAL DATE OF SCHEDULED SURGERY: 08/31/2023. HISTORY OF PRESENT ILLNESS: Leonard Hines is a 53-year-old gentleman seen with symptomatic right knee osteoarthritis. We discussed options regarding treatment. He elected to proceed with right total knee arthroplasty. Consent regarding procedure was obtained. PAST MEDICAL HISTORY: Hypertension, hyperlipidemia, rcd-owyjiji-rlvelamnc diabetes. PAST SURGICAL HISTORY: Herniorrhaphy, cholecystectomy, carpal tunnel release. DAILY MEDICATIONS: 1. Depakote. 2. Lipitor. 3. Amlodipine. 4. Lisinopril. 5. Metformin. 6. Motrin. ALLERGIES: Penicillin, sulfa. SOCIAL HISTORY: He denies current tobacco use. PHYSICAL EVALUATION OF RIGHT KNEE: His range of motion is degrees. Mild effusion. Tenderness to medial joint line. Crepitus in medial patellofemoral compartments with range of motion. Pain with patellofemoral compression. Ligaments stable. Hip rotation without pain. Distal neurovascular exam is intact. IMAGING: Right knee radiographs revealed severe osteoarthritic changes. IMPRESSION: 1. Right knee osteoarthritis. 2. Hypertension. 3. Hyperlipidemia. 4. Hpe-kvqzuoo-ytjmidhzo diabetes. PLAN: Right total knee arthroplasty. MMODL / IJN: [id number] /
[~2023-08-31 08:02] MED LIST changes: -DEXAMETHASONE SOD PHOSPHATE 4 MG/ML 1 ML VIAL IV ONE; -LACTATED RINGERS 1,000 ML IV SCH; +METOCLOPRAMIDE 5 MG/ML 2 ML VIAL IVP PRN; -ONDANSETRON 4 MG/2 ML VIAL IVP ONE; +TRANEXAMIC 1,000 MG/100ML-NACL 1,000 MG in SALINE 1 100ML.BAG IVPB PRN
[2023-08-31] MEDS: ACETAMINOPHEN TAB 500 MG TAB PO PRN (08:48)
[2023-08-31] MEDS: IV FLUID CONTINUATION 1,000 ML IV ONE (08:48)
[2023-08-31] MEDS: LACTATED RINGERS 1,000 ML IV SCH (08:49)
[2023-08-31] MEDS: MELOXICAM 7.5 MG TAB PO PRN (08:49)
[2023-08-31 08:50] LABS: Glucose,Whole Blood 109 mg/dL (70-110)
[2023-08-31] MEDS: ONDANSETRON 4 MG/2 ML VIAL IVP ONE (08:56)
[2023-08-31] MEDS: DEXAMETHASONE SOD PHOSPHATE 4 MG/ML 1 ML VIAL IV ONE (08:56)
[2023-08-31 09:08] VITALS: TEMP 97.9
[2023-08-31] MEDS: MIDAZOLAM 2 MG/2 ML VIAL IVP ONE (09:41)
[2023-08-31] MEDS ORDERED: DEXAMETHASONE SOD PHOSPHATE 4 MG/ML 1 ML VIAL ONE (10:25)
[2023-08-31] MEDS ORDERED: ROCURONIUM 10 MG/ML (5 ML VIAL) IV ONE (10:25)
[2023-08-31] MEDS ORDERED: HYDROmorphone (PF) 1 MG/ML ONE (10:25)
[2023-08-31] MEDS ORDERED: SUCCINYLCHOLINE CHLORIDE 200 MG/10 ML VIAL IV ONE (10:25)
[2023-08-31] MEDS ORDERED: ePHEDrine 50 MG/ML 1 ML VIAL ONE (10:25)
[2023-08-31] MEDS ORDERED: TRANEXAMIC 1,000 MG/100ML-NACL PREMIX BAG ONE (10:25)
[2023-08-31] MEDS ORDERED: fentaNYL (PF) 50 MCG/ML 2 ML AMP ONE (10:25)
[2023-08-31] MEDS ORDERED: PROPOFOL 10 MG/ML 20 ML VIAL IV ONE (10:25)
[2023-08-31] MEDS ORDERED: MIDAZOLAM 2 MG/2 ML VIAL ONE (10:25)
[2023-08-31] MEDS ORDERED: ROPIVACAINE 5 MG/ML 30 ML VIAL ONE (10:25)
[2023-08-31] MEDS: ceFAZolin 1,000 MG in SODIUM CHLORIDE 0.9% 1,000 ML IRRIGATION ONE (10:52)
[2023-08-31] MEDS: LACTATED RINGERS 1,000 ML IV ONE ×2 (11:23→15:01)
[2023-08-31] MEDS ORDERED: HYDROmorphone 1 MG/ML 1 ML SYRINGE IVP PRN (12:12)
[2023-08-31] MEDS ORDERED: HYDROmorphone 0.5 MG/0.5 ML SYRINGE IVP PRN ×2 (12:12)
[2023-08-31] MEDS ORDERED: ONDANSETRON 4 MG/2 ML VIAL IVP PRN (12:12)
[2023-08-31] MEDS ORDERED: HYDROcodone/APAP 5-325MG 1 EACH TAB PO PRN (12:12)
[2023-08-31] MEDS ORDERED: NALOXONE 0.4 MG/ML 1 ML VIAL IV PRN (12:12)
--- NOTE | 2023-08-31 12:12 | P.OP ---
Date of Procedure: 08/31/23 Preoperative Diagnosis: Right knee osteoarthritis Postoperative Diagnosis: Right knee osteoarthritis Procedure(s) Performed: Right total knee arthroplasty Implants: 1. DePuy attune size 6 right cruciate retaining cemented femur 2. DePuy attune size 7 fixed-bearing cemented tibial baseplate 3. DePuy attune size 6 fixed-bearing cruciate retaining 8 mm polyethylene tibial insert 4. DePuy attune 41 mm all polyethylene cemented patella Anesthesia: GETA, regional (Adductor canal catheter, iPAQ block) Surgeon: Ovi Marroquin Comparator Operator #1: Huseyin Moreland Estimated Blood Loss (ml): 45 Pathology: none sent Condition: stable Disposition: PACU Indications for Procedure: 53-year-old patient seen with symptomatic right knee osteoarthritis. After having treatment options discussed, he elected to proceed with total knee ar throplasty. Operative Findings: See description of procedure Description of Procedure: Patient was taken to the operative suite after having an adductor canal catheter placed by the department of anesthesia. Patient underwent a general anesthetic by the department of anesthesia. Patient was given preoperative IV intake antibiotics and TXA. A well-padded tourniquet was placed about the [] lower extremity. The lower extremity was then prepped and draped in the normal sterile orthopedic fashion. The extremity was elevated, a tourniquet was insufflated to 300. A standard anterior incision was made sharply through skin. Dissection was taken down through the subcutaneous soft tissues down to the extensor mechanism. A medial arthrotomy was performed, patella was everted and knee was flexed. There was advanced osteoarthritis noted. I introduced my distal intramedullary femoral drill. I then introduced the distal femoral cutting jig. Clark ALEXANDRE secured the cutting jig with 2 pins. I held retractors in position while Clark ALEXANDRE performed the distal femoral resection through the guide area we now removed her distal femoral cutting guide. We now placed our 4-in-1 femoral cutting block and positioned and it was secured with 2 pins by Clark ALEXANDRE while I held the block in position. The distal femoral finishing was now completed. A proximal tibial cutting guide was positioned. I held the guide in the appropriate position with both hands well Clark ALEXANDRE inserted stabilizing pins into the guide. Proximal tibial cut was made. We now placed a trial femoral component into position, along with an appropriate size tibial tray and insert. We now took the knee through range of motion and had full extension good flexion and good overall soft tissue balance noted. The patella was everted and stabilized with 2 towel clips held by Clark ALEXANDRE while I performed a flush with patellar quad tendon utilizing a fresh sawblade. We templated the patella, appropriate drill holes were made. An appropriate trial patella was positioned, knee was taken through full range of motion with the patella tracking very nicely. The trial patella was removed. Drill holes were made through the femoral component. All trial components were removed after marking off the appropriate rotation of the tibia. Retractors we re now positioned along the proximal tibia. An appropriate keel punch was made with the appropriate size tibial guide by myself on Clark ALEXANDRE assisted by holding retractors. At this point appropriate size implants were chosen and opened. The joint was irrigated copiously with pulse lavage mechanical irrigation. The wound was irrigated with pulse lavage mechanical irrigation. We mixed antibiotic methylmethacrylate. We placed the knee into flexion. We placed multiple retractors assisted by Clark ALEXANDRE to expose the proximal tibia. Once the methyl methacrylate was ready, the tibial component was cemented into place removing any excess methylmethacrylate form by both myself and Clark ALEXANDRE. The femoral component was cemented into place removing the removing any excess methylmethacrylate performed by both myself and Clark ALEXANDRE. We then inserted the appropriate size polyethylene tibial insert. We made sure that it was locked into position. We took the knee into full extension, and then back in a flexion making sure we had removed any excess methylmethacrylate. The patellar component was then cemented down and secured with clamp. Excess methylmethacrylate removed. We kept the knee in full extension, patellar clamp in position until methylmethacrylate had hardened. Once it had hardened the patellar clamp was removed. The knee was taken through full range of motion. The patella tracked nicely. There was good soft tissue balancing. The tourniquet was now released. Additional hemostasis was achieved via electrocautery. A second gram of TXA was given. The wound again was irrigated with pulse lavage mechanical irrigation. The extensor mechanism was repaired with Ethibond suture. We checked the repair with range of motion and it was stable. The subcutaneous soft tissues were repaired with Vicryl in layers. The skin was approximated with pernio/Dermabond. Sterile dressings were applied followed by loose web roll and Aj bandage. The patient was transferred to a bed, and taken to recovery in stable and satisfactory condition. Clark ALEXANDRE assisted with this complex procedure.
[2023-08-31] MEDS: HYDROmorphone 0.5 MG/0.5 ML SYRINGE IVP PRN (12:50)
[2023-08-31] MEDS: ROPIVACAINE 1,100 MG, SODIUM CHLORIDE 0.9% 500 ML 330 ML, EMPTY PAIN BALL 1 EACH MISCELLANE PRN (13:01)
[2023-08-31 13:40] LABS: Glucose,Whole Blood 149 mg/dL (70-110)
[2023-08-31] MEDS: HYDROcodone/APAP 7.5-325MG 1 EACH TAB PO PRN (14:07)
--- NOTE | 2023-08-31 14:18 | XR ---
EXAMINATION TYPE: XR knee limited RT DATE OF EXAM: 08/31/2023 1:32 PM CLINICAL INDICATION:Male, 53 years old with history of Evaluation for Postop abnormality and alignmen t; [facility] COMPARISON: None. TECHNIQUE: XR knee limited RT; examined in Frontal, lateral and oblique projections. FINDINGS: Status post total knee arthroplasty changes with hardware in appropriate alignment and in tact. No evidence of fracture. Subcutaneous lucencies and lucencies within the joint consistent with surgical changes. IMPRESSION: Status post total knee arthroplasty changes with hardware intact and appropriate alignment. No fractu res identified.
[2023-08-31] MEDS: diphenhydrAMINE 50 MG/ML 1 ML VIAL IVP STA (14:33)
[2023-08-31 14:59] VITALS: RESP 18
[2023-08-31 15:17] VITALS: BP 127/69; PULSE 80
--- NOTE | 2023-09-01 07:04 | P.ANPRN ---
Procedure Note - Anesthesia - Nerve Block Performed Right Adductor Canal Infusion Time Out Performed: Yes Date of Procedure: 08/31/23 Procedure Start Time: 09:40 Procedure Stop Time: :54 Location of Patient: PreOp Indication: Acute Post-Operative Pain, Requested by Surgeon Sedation Type: Sedate with meaningful contact maintained Preparation: Sterile Prep, Sterile Dressing Position: Supine Catheter: Indwelling Needle Types: Pajunk Needle Gauge: 21 Ultrasound used to visualize needle placement: Yes Ultrasound used to observe medication spread: Yes Blood Aspirated: No Pain Paresthesia on Injection Noted: No Resistance on Injection: Normal Image Stored and Saved: Yes Events: Uneventful and Well Tolerated (Ropivacaine 0.5% 20 cc plus dexamethasone 4 mg)
--- NOTE | 2023-09-01 07:06 | P.ANPRN ---
Procedure Note - Anesthesia - Nerve Block Performed Right [place] Single Time Out Performed: Yes Date of Procedure: 08/31/23 Procedure Start Time: :55 Procedure Stop Time: :57 Location of Patient: PreOp Indication: Acute Post-Operative Pain, Requested by Surgeon Sedation Type: Sedate with meaningful contact maintained Preparation: Sterile Prep Position: Supine Needle Types: Pajunk Needle Gauge: 21 Ultrasound used to visualize needle placement: Yes Ultrasound used to observe medication spread: Yes Blood Aspirated: No Pain Paresthesia on Injection Noted: No Resistance on Injection: Normal Image Stored and Saved: Yes Events: Uneventful and Well Tolerated (ropi0.5% 25 cc plus dexamethasone 4 mg)
== END 2023-08-31 16:36 | disposition home health service (06) ==
LOC: OR 08:02
PROVIDERS: ATTEND Orthopaedic Surgery
DX: M17.11 Unilateral primary osteoarthritis, right knee (principal); G89.18 Other acute postprocedural pain; I10 Essential (primary) hypertension; E11.69 Type 2 diabetes mellitus with other specified complication; E78.5 Hyperlipidemia, unspecified; G47.33 Obstructive sleep apnea (adult) (pediatric); E07.9 Disorder of thyroid, unspecified; Z87.891 Personal history of nicotine dependence; Z88.0 Allergy status to penicillin; Z88.2 Allergy status to sulfonamides; Z88.1 Allergy status to other antibiotic agents; Z79.899 Other long term (current) drug therapy; Z79.84 Long term (current) use of oral hypoglycemic drugs; Z79.890 Hormone replacement therapy
CPT/HCPCS: 97530; 97161; 73560; 27447; 64999; 64448; J2250; J1200; J1100; J0690 ×2; J2405; J2795; J1170

== ENCOUNTER → 2024-03-18 | Outpatient (CLI) | payer OTHER ==
--- NOTE | 2024-03-18 13:41 | CTL ---
EXAMINATION TYPE: CT Low Dose Lung DATE OF EXAM: 03/18/2024 10:00 AM COMPARISON: 03/03/2023 SCREENING VISIT: Subsequent CT DIAGNOSTIC QUALITY: Satisfactory CLINICAL INDICATION: Male, 53 years old with history of Z12.2; Z87.891, , Lung cancer screening, Hist ory of tobacco use. TECHNIQUE: Low dose computed tomography scan was performed through the chest at 1 mm thick sections a nd reconstructed images in the coronal plane at 1 mm thick sections. Contrast used: mL of , (none if empty) Oral contrast used: (none if empty) CT DLP: 113.10 mGycm, Automated exposure control for dose reduction was used. CT CTDI: mGy, Automated exposure control for dose reduction was used. FINDINGS: LUNG NODULES: None. LUNGS: COPD: Severity: None Fibrosis: Severity: None Lymph nodes: None Other findings: None RIGHT PLEURAL SPACE: Effusion: None Calcification: None Thickening: None Pneumothorax: None LEFT PLEURAL SPACE: Effusion: None Calcification: None Thickening: None Pneumothorax: None HEART: Other: Ascending thoracic aorta at the level the main pulmonary artery measures 3.3 cm. The main pul monary artery at the bifurcation measures2.8 cm. Heart Size: Normal Coronary calcification: None Pericardial effusion: None OTHER FINDINGS: Upper abdomen: Normal Bony thorax: Normal Supraclavicular region: Normal IMPRESSION: 1. No suspicious changes to suggest primary or metastatic neoplasm. FOLLOW UP CT CHEST RECOMMENDATION: Follow up low-dose CT chest one year CT LUNG RAD: Lung-Rad 1 Negative [facility], Workstation: [id number], 03/18/2024 1:38 PM
== END | disposition home or self-care (01) ==
LOC: RADCTMAIN 09:31
PROVIDERS: ATTEND Family Medicine
DX: Z12.2 Encounter for screening for malignant neoplasm of respiratory organs (principal); Z87.891 Personal history of nicotine dependence
CPT/HCPCS: 71271